=== PATIENT | female | born 1955 | race Caucasian/White ===

== ENCOUNTER 2019-11-19 23:19 | Inpatient (IN) | payer MEDICAID ==
[~2019-11-19] VITALS: Ht 152.4 cm; Wt 50.9 kg
[~2019-11-19 23:19] MED LIST: APIX2.5T PO; APIX5TAB3 PO; ARIP2TAB37 PO; BUTA-281 PO; GABA800T11 PO; HYDR-4353 PO; INSU100V9 SQ; LORA2TAB PO; NOVRI SQ; ONDA-103 PO; TEMA15CA PO
[2019-11-20] MEDS ORDERED: LORazepam 2 mg/ml vial ONE (00:07)
[2019-11-20] MEDS ORDERED: LORazepam 2 mg/ml vial IV ONE ×4 (00:10→01:25)
[2019-11-20] MEDS ORDERED: levetiracetam inj 500 MG in normal saline 100ml IV soln 95 ML IV STA (00:12)
[2019-11-20] MEDS ORDERED: Levetiracetam-NS 500mg/100ml 100 ML IV STA (00:18)
[2019-11-20 00:34] LABS: HEMOGLOBIN 11.1 g/dl (12.0-16.0)
[2019-11-20 00:35] LABS: BASOPHILS # (AUTO) 0.1 X10'3 (0-0.2); BASOPHILS % (AUTO) 1.2 % (0-1); EOSINOPHILS # (AUTO) 0.2 X10'3 (0-0.9); EOSINOPHILS % (AUTO) 2.5 % (0-6); HEMATOCRIT 33.4 % (35.0-45.0); LYMPHOCYTES # (AUTO) 2.8 X10'3 (1.1-4.8); LYMPHOCYTES % (AUTO) 35.6 % (21-51); MEAN CORPUSCULAR HEMOGLOBIN 30.1 PG (27.0-31.0); MEAN CORPUSCULAR HGB CONC 33.3 g/dL (33.0-36.5); MEAN CORPUSCULAR VOLUME 90.4 FL (78-98); MEAN PLATELET VOLUME 8.3 FL (7.4-10.4); MONOCYTES # (AUTO) 0.6 X10'3 (0-0.9); NEUTROPHILS # (AUTO) 4.2 X10'3 (1.8-7.7); NEUTROPHILS % (AUTO) 52.7 % (42-75); PLATELET COUNT 252 X10'3 (140-440); RED CELL DISTRIBUTION WIDTH 13.4 % (11.5-14.5)
[2019-11-20] MEDS ORDERED: ondansetron/PF 4mg/2ml inj IV STA (00:44)
[2019-11-20 00:45] LABS: ALANINE AMINOTRANSFERASE 18 U/L (12-78); ALBUMIN 3.3 G/DL (3.4-5.0); ALKALINE PHOSPHATASE 89 IU/L (46-116); ANION GAP 9 (8-16); ASPARTATE AMINO TRANSFERASE 16 U/L (10-37); BILIRUBIN,TOTAL 0.2 MG/DL (0.1-1.0); BLOOD UREA NITROGEN 30 MG/DL (7-18); BUN/CREATININE RATIO 25.6 (6.6-38.0); CALCIUM 8.8 MG/DL (8.5-10.1); CHLORIDE 105 MMOL/L (99-107); CREATININE 1.17 MG/DL (0.40-0.90); GLUCOSE 329 MG/DL (70-104); SODIUM 138 MMOL/L (135-145); TOTAL CARBON DIOXIDE 24.4 MMOL/L (24-32); TOTAL PROTEIN 6.7 G/DL (6.4-8.2); eGFR 47 ML/MIN
--- NOTE | 2019-11-20 00:45 | NUR ---
pt came back from CT at 0005. She appeared to be having a seizure and her body started to jerk. Dr. Geronimo came to the room. Pt placed on O2 2L NC> pt given IM ativan 1mg. d/t unable to start an IV. she then got an IV placed on her left FA. Dr Geronimo ordered her Keppra IV. She continues to have seizures and moments of quick jerking of her body. Pt jerks/shakes for approximately 1 minutes then she goes into a postictal mode. She has been imtermittenly having seizures for now 45 minutes. She has not been back to her base line. she is given another dose of ativan and zofran. pt vomiting and placed on her side. Suction at bedside used.
[2019-11-20] MEDS ORDERED: haloperidol lactate 5mg/ml inj IM ONE ×2 (01:45→05:00)
[2019-11-20] MEDS ORDERED: diphenhydrAMINE 50 mg/ml inj IM ONE (01:45)
[2019-11-20] MEDS ORDERED: Levetiracetam-NS 500mg/100ml 100 ML IV ONE (02:10)
--- NOTE | 2019-11-20 02:14 | NUR ---
pt continues to move in body with left and ride body movements. her eyes are close and she is sticking her tongue out at times. She does not answer questions appropriately. Urine collected via straight cath with assistance from kami genao and kami guardado.
[2019-11-20 02:18] LABS: CLARITY,URINE CLEAR (Clear); COLOR,URINE YELLOW (Yellow); GLUCOSE, URINE >=1000 mg/dl (Neg); KETONES,URINE NEGATIVE (Neg); LEUKOCYTE ESTERASE ,URINE NEGATIVE (Neg); NITRITES, URINE NEGATIVE (Neg); OCCULT BLOOD,URINE NEGATIVE (Neg); PH,URINE 5.5 (4.8-8.0); PROTEIN,URINE NEGATIVE (Neg); UROBILINOGEN,URINE 0.2 E.U/dL (0.2-1.0)
[2019-11-20 02:20] LABS: UA COLLECTION TYPE STRAIGHT CATH
[2019-11-20] MEDS ORDERED: BACL10TA2 PO (02:20)
[2019-11-20] MEDS ORDERED: GABA600T13 PO (02:20)
[2019-11-20] MEDS ORDERED: SUMA20SP (02:20)
[2019-11-20] MEDS ORDERED: INSU100I39 SUBCUT (02:20)
[2019-11-20 02:28] LABS: URINE AMPHETAMINE SCREEN NEGATIVE (Neg); URINE BARBITUATE SCREEN NEGATIVE (Neg); URINE BENZODIAZEPINES SCREEN NEGATIVE (Neg); URINE CANNABINOID SCREEN NEGATIVE (Neg); URINE COCAINE SCREEN NEGATIVE (Neg); URINE METHADONE SCREEN NEGATIVE (Neg); URINE OPIATE SCREEN NEGATIVE (Neg); URINE PHENCYCLIDINE SCREEN NEGATIVE (Neg)
--- NOTE | 2019-11-20 02:43 | NUR ---
pt able to answer the questions that she wants too when I ask her questions. She continues to thrive in the bed. Encouraged her to stop this behavior.
[2019-11-20 02:48] LABS: BACTERIA,URINE NONE SEEN /HPF (Neg); RBC,URINE NONE SEEN /HPF (0-2); SQUAMOUS EPITHELIAL CELL,UR FEW /LPF (FEW); WBC,URINE NONE SEEN /HPF (0-4)
--- NOTE | 2019-11-20 02:59 | NUR ---
Pt states she took too many gabepentin. she also was able to tell us that she needed to pee. She wasn't able to hold it though, full bed change. informed of gabepjayant.
[2019-11-20] MEDS ORDERED: MIDAZolam 5mg/ml 2ml vial IV ONE ×2 (03:15→03:45)
--- NOTE | 2019-11-20 03:30 | NUR ---
md requested restraints be removed, so done. at to evaluate pt. Pt moves side to side but appears more comfortable. Continue 1:1
--- NOTE | 2019-11-20 04:13 | NUR ---
pt still restless and confused. trying to get out of bed. non verbal. pt got 10mg of versed. hernandez cath placed per dr. syed orders.
[2019-11-20] MEDS ORDERED: magnesium hydroxide 30ml (MOM) UD suspension PO PRN (04:15)
[2019-11-20] MEDS ORDERED: mag hydrox/Alum hydrox/simeth 30ml oral suspension PO PRN (04:15)
[2019-11-20] MEDS ORDERED: LIDOcaine 2% 10ml TOPICAL JELLY (Urojet) TP ONE (04:15)
[2019-11-20] MEDS ORDERED: ondansetron/PF 4mg/2ml inj IV PRN (04:15)
[2019-11-20] MEDS ORDERED: acetaminophen 325mg tablet PO PRN (04:15)
[2019-11-20] MEDS ORDERED: dextrose ORAL solution 15 GM/59 ML bottle PO PRN ×2 (04:20)
[2019-11-20] MEDS ORDERED: dextrose 50%-water 50ml dispensing syringe IV PRN ×2 (04:20)
[2019-11-20] MEDS ORDERED: MESSAGE TO PHARMACY PO ONE (04:20)
[2019-11-20] MEDS ORDERED: glucagon, human recombinant 1mg kit SUBCUT PRN (04:20)
[2019-11-20] MEDS: normal saline 1000ml 1,000 ML IV SCH ×3 (04:32→17:40)
--- NOTE | 2019-11-20 04:34 | NUR ---
pt asleep laying on left side
--- NOTE | 2019-11-20 05:00 | NUR ---
pt awoke and moaning and thrashing around again, informed.
--- NOTE | 2019-11-20 05:00 | NUR ---
pt awake and throwing her legs around. she is grabbing at her leads and bp cuff. she is still disoriented. v/s stable. per dr rahman, give her im ativan
[2019-11-20 05:15] LABS: HEMOGLOBIN A1C 10.6 % (4.5-6.2)
--- NOTE | 2019-11-20 06:25 | NUR ---
Received report from ED RN
[2019-11-20 06:30] VITALS: BP 133/75
[2019-11-20] MEDS: Levetiracetam-NS 500mg/100ml 100 ML IV SCH ×2 (10:12→21:07)
[2019-11-20] MEDS: heparin, porcine 5000 units/ml vial SQ SCH ×2 (10:13→20:20)
[2019-11-20] MEDS: insulin Lispro (HumaLOG) vial - multi-dose SQ SCH ×2 (10:18→14:15)
[2019-11-20 11:00] VITALS: BP 138/77
--- NOTE | 2019-11-20 12:23 | NUR ---
Pt with T2DM, current A1c is 10.6%. Pt just admitted today with acute encephalopathy, seizures, and AMS. Pending physical assessment however pt confused and nonverbal this morning per RN notes, currently with a sitter at bedside. DM education deferred at this time. Will continue to follow and provide education once pt alert and oriented. Addendum: 11/20/19 at [address] Amended: Links added.
--- NOTE | 2019-11-20 15:25 | NUR ---
DM consult: Patient's A1c has already been addressed, DM education deferred at this time, see below. Physical assessment still pending. Pt with T2DM, current A1c is 10.6%. Pt just admitted today with acute encephalopathy, seizures, and AMS. Pending physical assessment however pt confused and nonverbal this morning per RN notes, currently with a sitter at bedside. DM education deferred at this time. Will continue to follow and provide education once pt alert and oriented. Addendum: 11/20/19 at [address] Amended: Links added.
--- NOTE | 2019-11-20 18:30 | NUR ---
Problems reprioritized. Patient report given, questions answered & plan of care reviewed with RUDOLPH Hoover.
[2019-11-20 20:00] VITALS: BP 119/61
[2019-11-20] MEDS ORDERED: levetiracetam inj 500 MG in normal saline 100ml IV soln 95 ML IV SCH (21:24)
[2019-11-20] MEDS: insulin glargine (Lantus) pen - multi-dose SQ SCH (22:15)
[2019-11-21] VITALS: BP 96/57
[2019-11-21 05:32] LABS: BASOPHILS # (AUTO) 0.1 X10'3 (0-0.2); BASOPHILS % (AUTO) 0.7 % (0-1); EOSINOPHILS # (AUTO) 0.1 X10'3 (0-0.9); EOSINOPHILS % (AUTO) 1.8 % (0-6); HEMATOCRIT 33.2 % (35.0-45.0); HEMOGLOBIN 11.1 g/dl (12.0-16.0); LYMPHOCYTES # (AUTO) 2.2 X10'3 (1.1-4.8); LYMPHOCYTES % (AUTO) 29.1 % (21-51); MEAN CORPUSCULAR HEMOGLOBIN 29.7 PG (27.0-31.0); MEAN CORPUSCULAR HGB CONC 33.5 g/dL (33.0-36.5); MEAN CORPUSCULAR VOLUME 88.6 FL (78-98); MEAN PLATELET VOLUME 8.4 FL (7.4-10.4); MONOCYTES # (AUTO) 0.5 X10'3 (0-0.9); MONOCYTES % (AUTO) 6.5 % (2-12); NEUTROPHILS # (AUTO) 4.6 X10'3 (1.8-7.7); NEUTROPHILS % (AUTO) 61.9 % (42-75); PLATELET COUNT 248 X10'3 (140-440); RED BLOOD COUNT 3.75 X10'6 (4.20-5.60); RED CELL DISTRIBUTION WIDTH 13.7 % (11.5-14.5); WHITE BLOOD COUNT 7.5 X10'3 (4.5-11.0)
[2019-11-21 06:08] LABS: ALANINE AMINOTRANSFERASE 21 U/L (12-78); ALBUMIN 2.6 G/DL (3.4-5.0); ALBUMIN/GLOBULIN RATIO 0.8 (1.1-1.5); ALKALINE PHOSPHATASE 82 IU/L (46-116); ANION GAP 10 (8-16); ASPARTATE AMINO TRANSFERASE 34 U/L (10-37); BILIRUBIN,TOTAL 0.2 MG/DL (0.1-1.0); BLOOD UREA NITROGEN 21 MG/DL (7-18); BUN/CREATININE RATIO 23.6 (6.6-38.0); CALCIUM 8.6 MG/DL (8.5-10.1); CHLORIDE 110 MMOL/L (99-107); CREATININE 0.89 MG/DL (0.40-0.90); GLUCOSE 133 MG/DL (70-104); POTASSIUM 3.9 MMOL/L (3.5-5.1); SODIUM 141 MMOL/L (135-145); TOTAL CARBON DIOXIDE 21.4 MMOL/L (24-32); TOTAL PROTEIN 5.8 G/DL (6.4-8.2); eGFR 64 ML/MIN
--- NOTE | 2019-11-21 06:21 | NUR ---
Problems reprioritized. Patient report given, questions answered & plan of care reviewed with Deann RN.
[2019-11-21 06:30] VITALS: BP 120/68
--- NOTE | 2019-11-21 06:35 | NUR ---
Patient in room [facility] 349. I have received report from RUDOLPH Hoover and had the opportunity to ask questions and assume patient care.
[2019-11-21] MEDS: heparin, porcine 5000 units/ml vial SQ SCH ×2 (09:38→21:14)
[2019-11-21] MEDS: insulin Lispro (HumaLOG) vial - multi-dose SQ SCH (09:43)
[2019-11-21] MEDS: normal saline 1000ml 1,000 ML IV SCH ×2 (10:13→17:10)
[2019-11-21 11:48] VITALS: BP 126/65
--- NOTE | 2019-11-21 18:45 | NUR ---
Problems reprioritized. Patient report given, questions answered & plan of care reviewed with RUDOLPH Gee.
--- NOTE | 2019-11-21 18:56 | NUR ---
Patient in room [facility] 349. I have received report from Deann Olivia and had the opportunity to ask questions and assume patient care. Addendum: 11/21/19 at 1856 by Marlen Jarvis RN Amended: Links added.
--- NOTE | 2019-11-21 19:08 | NUR ---
resting eyes closed without changes sitter at the bedside. no s&s of distress at this time.
[2019-11-21 19:15] VITALS: BP 164/76
[2019-11-21] MEDS: insulin glargine (Lantus) pen - multi-dose SQ SCH (21:00)
[2019-11-21] MEDS: LORazepam 2 mg/ml vial IV PRN (21:12)
[2019-11-21] MEDS: levetiracetam 250mg tablet PO SCH (21:13)
--- NOTE | 2019-11-21 21:15 | NUR ---
pt c/o right shoulder pain said felt like she was punched no bruise noted and medicated with Tylenol for this. pt had yelled at therapy teacher and was agitated so medicated with 1mg Ativan for this and explained what happened to bring her in. pt stated she used CBD cream day she came in and 2 Neurontin and no baclofen that day.
--- NOTE | 2019-11-22 00:18 | NUR ---
sitter at bedside and pt resting without changes at this time.
--- NOTE | 2019-11-22 02:20 | NUR ---
resting eyes closed without changes
--- NOTE | 2019-11-22 05:26 | NUR ---
resting eyes closed without changes.
[2019-11-22 05:37] LABS: BASOPHILS % (AUTO) 0.5 % (0-1); EOSINOPHILS # (AUTO) 0.2 X10'3 (0-0.9); EOSINOPHILS % (AUTO) 2.8 % (0-6); HEMATOCRIT 33.3 % (35.0-45.0); HEMOGLOBIN 11.1 g/dl (12.0-16.0); LYMPHOCYTES # (AUTO) 2.6 X10'3 (1.1-4.8); LYMPHOCYTES % (AUTO) 46.3 % (21-51); MEAN CORPUSCULAR HEMOGLOBIN 29.7 PG (27.0-31.0); MEAN CORPUSCULAR HGB CONC 33.3 g/dL (33.0-36.5); MEAN CORPUSCULAR VOLUME 89.1 FL (78-98); MEAN PLATELET VOLUME 8.3 FL (7.4-10.4); MONOCYTES # (AUTO) 0.4 X10'3 (0-0.9); MONOCYTES % (AUTO) 6.9 % (2-12); NEUTROPHILS # (AUTO) 2.4 X10'3 (1.8-7.7); NEUTROPHILS % (AUTO) 43.5 % (42-75); PLATELET COUNT 231 X10'3 (140-440); RED BLOOD COUNT 3.74 X10'6 (4.20-5.60); RED CELL DISTRIBUTION WIDTH 13.3 % (11.5-14.5); WHITE BLOOD COUNT 5.6 X10'3 (4.5-11.0)
[2019-11-22 05:47] LABS: ALANINE AMINOTRANSFERASE 18 U/L (12-78); ALBUMIN 2.5 G/DL (3.4-5.0); ALBUMIN/GLOBULIN RATIO 0.8 (1.1-1.5); ALKALINE PHOSPHATASE 81 IU/L (46-116); ANION GAP 6 (8-16); ASPARTATE AMINO TRANSFERASE 29 U/L (10-37); BILIRUBIN,TOTAL 0.3 MG/DL (0.1-1.0); BLOOD UREA NITROGEN 12 MG/DL (7-18); BUN/CREATININE RATIO 16.9 (6.6-38.0); CALCIUM 8.5 MG/DL (8.5-10.1); CHLORIDE 109 MMOL/L (99-107); CREATININE 0.71 MG/DL (0.40-0.90); GLUCOSE 115 MG/DL (70-104); POTASSIUM 3.5 MMOL/L (3.5-5.1); SODIUM 140 MMOL/L (135-145); TOTAL CARBON DIOXIDE 25.1 MMOL/L (24-32); TOTAL PROTEIN 5.8 G/DL (6.4-8.2); eGFR 83 ML/MIN
--- NOTE | 2019-11-22 06:20 | NUR ---
Patient in room [facility] 349. I have received report from RUDOLPH Gee and had the opportunity to ask questions and assume patient care.
--- NOTE | 2019-11-22 06:28 | NUR ---
Problems reprioritized. Patient report given, questions answered & plan of care reviewed with Deann Olivia. Addendum: 11/22/19 at 0629 by Marlen Jarvis RN Amended: Links added.
[2019-11-22 06:30] VITALS: BP 129/74
[2019-11-22] MEDS: normal saline 1000ml 1,000 ML IV SCH ×3 (06:32→20:09)
[2019-11-22] MEDS: heparin, porcine 5000 units/ml vial SQ SCH ×2 (07:37→20:31)
[2019-11-22] MEDS: levetiracetam 250mg tablet PO SCH ×2 (07:37→20:28)
[2019-11-22] MEDS: acetaminophen 325mg tablet PO PRN (10:10)
[2019-11-22 11:00] VITALS: BP_SYST 130; BP_SYST 133; BP_SYST 137; BP_DIAS 67; BP_DIAS 70; BP_DIAS 72
--- NOTE | 2019-11-22 11:25 | NUR ---
Pt had syncopal episode x1 when ambulating w/PT. Dr Ramos notified. Orders received.
[2019-11-22] MEDS: HYDROcodone/acetaminophen 10/325mg tab PO PRN ×3 (12:13→20:30)
[2019-11-22] MEDS: insulin Lispro (HumaLOG) vial - multi-dose SQ SCH ×2 (14:05→18:56)
--- NOTE | 2019-11-22 18:30 | NUR ---
Problems reprioritized. Patient report given, questions answered & plan of care reviewed with RUDOLPH Dunn.
--- NOTE | 2019-11-22 18:30 | NUR ---
Patient in room [facility] 349. I have received report from DOYLE and had the opportunity to ask questions and assume patient care.
[2019-11-22 20:00] VITALS: BP_SYST 143; BP_SYST 145; BP_DIAS 73; BP_DIAS 75; BP_DIAS 76
[2019-11-22] MEDS: insulin glargine (Lantus) pen - multi-dose SQ SCH (21:00)
[2019-11-22] MEDS ORDERED: Melatonin 3mg tablet PO PRN (22:30)
[2019-11-23] VITALS: BP 124/65
[2019-11-23] MEDS: HYDROcodone/acetaminophen 10/325mg tab PO PRN ×2 (00:04→09:07)
--- NOTE | 2019-11-23 05:15 | NUR ---
PT C/O NAUSEA AND HEADACHE. BLOOD GLUCOSE 115. PT BEGAN TO HAVE A SEIZURE: NON RESPONSIVE WITH RIGHT ARM TWITCHING. ATIVAN IV GIVEN PER MD ORDER. BP 137/69, HR 86, OXYGEN SATURATIONS 95% RA, TEMP 97.6. AFTER ATIVAN, PT OPENED EYES AND BECAME TEARFUL. PT ABLE TO VERBALIZE NAME AND THAT SHE IS "IN BED" 0532: PT BECAME NON RESPONSIVE AGAIN, WITH BOTH ARMS TWITCHING AND TONGUE STICKING OUT OF MOUTH. PT DOES NOT APPEAR TO BE BITING TONGUE. BP 151/82 HR 84, 91% RA, PT PLACED ON 2L NC, O2 97% 2L. ATIVAN IV GIVEN ONCE AGAIN. DR CHAVIRA NOTIFIED OF ABOVE INFORMATION. DR JOHNSON HERE TO SEE PT AT THIS TIME. PT ABLE TO OPEN HER EYES AND C/O ALEXANDER. UNABLE TO ANSWER QUESTIONS APPROPRIATELY AT THIS TIME. KEPPRA IV NOW ORDERED BY DR CHAVIRA.
[2019-11-23 05:17] VITALS: BP 137/69
[2019-11-23] MEDS: LORazepam 2 mg/ml vial IV PRN ×3 (05:20→05:32)
[2019-11-23] MEDS: normal saline 1000ml 1,000 ML IV SCH (05:27)
[2019-11-23 05:32] VITALS: BP 151/82
[2019-11-23] MEDS ORDERED: Levetiracetam-NS 500mg/100ml 100 ML IV SCH ×2 (05:40→05:42)
[2019-11-23] MEDS ORDERED: Levetiracetam-NS 500mg/100ml 100 ML IV ONE (05:42)
--- NOTE | 2019-11-23 06:02 | NUR ---
PT REMAINS ALERT. ABLE TO STATE NAME AND ASSIST WITH USING THE BEDPAN. WILL CONTINUE TO MONITOR.
--- NOTE | 2019-11-23 06:44 | NUR ---
I have received report from Mona GALDAMEZ and had the opportunity to ask questions and assume patient care.
[2019-11-23] MEDS: levetiracetam 250mg tablet PO SCH (07:54)
[2019-11-23] MEDS: heparin, porcine 5000 units/ml vial SQ SCH (07:59)
[2019-11-23 08:53] LABS: BASOPHILS % (AUTO) 0.5 % (0-1); EOSINOPHILS # (AUTO) 0.2 X10'3 (0-0.9); HEMATOCRIT 30.3 % (35.0-45.0); HEMOGLOBIN 10.3 g/dl (12.0-16.0); LYMPHOCYTES # (AUTO) 2.3 X10'3 (1.1-4.8); MEAN CORPUSCULAR HEMOGLOBIN 30.1 PG (27.0-31.0); MEAN CORPUSCULAR VOLUME 88.5 FL (78-98); MEAN PLATELET VOLUME 7.9 FL (7.4-10.4); MONOCYTES # (AUTO) 0.3 X10'3 (0-0.9); MONOCYTES % (AUTO) 7.6 % (2-12); NEUTROPHILS # (AUTO) 1.7 X10'3 (1.8-7.7); NEUTROPHILS % (AUTO) 37.9 % (42-75); PLATELET COUNT 214 X10'3 (140-440); RED BLOOD COUNT 3.43 X10'6 (4.20-5.60); RED CELL DISTRIBUTION WIDTH 13.2 % (11.5-14.5); WHITE BLOOD COUNT 4.5 X10'3 (4.5-11.0)
[2019-11-23] MEDS: insulin Lispro (HumaLOG) vial - multi-dose SQ SCH ×2 (09:00→13:45)
[2019-11-23 09:05] LABS: ALANINE AMINOTRANSFERASE 19 U/L (12-78); ALBUMIN 2.7 G/DL (3.4-5.0); ALBUMIN/GLOBULIN RATIO 0.8 (1.1-1.5); ALKALINE PHOSPHATASE 73 IU/L (46-116); ANION GAP 7 (8-16); ASPARTATE AMINO TRANSFERASE 33 U/L (10-37); BILIRUBIN,TOTAL 0.2 MG/DL (0.1-1.0); BLOOD UREA NITROGEN 9 MG/DL (7-18); BUN/CREATININE RATIO 11.8 (6.6-38.0); CHLORIDE 111 MMOL/L (99-107); CREATININE 0.76 MG/DL (0.40-0.90); GLUCOSE 138 MG/DL (70-104); POTASSIUM 3.5 MMOL/L (3.5-5.1); SODIUM 144 MMOL/L (135-145); TOTAL CARBON DIOXIDE 25.9 MMOL/L (24-32); TOTAL PROTEIN 5.9 G/DL (6.4-8.2); eGFR 77 ML/MIN
[2019-11-23 10:41] VITALS: BP_SYST 131; BP_SYST 138; BP_SYST 139; BP_DIAS 68; BP_DIAS 74; BP_DIAS 76
[2019-11-23] MEDS: acetaminophen 325mg tablet PO PRN (11:16)
--- NOTE | 2019-11-23 15:00 | NUR ---
Patient wanting to leave AMA. Patient pulled own IV out in the restroom while on the toilet. Patient educated that she is on a hold, which was a surprise to the patient. Patient complains that she had not been told about the hold. Paged SS to talk to patient again. Patient is tearful and states she isn't wanting to hurt herself.
--- NOTE | 2019-11-23 16:45 | NUR ---
PAGER ID: [phone] MESSAGE: [id number] Lo Zuñiga has been evaluated by Mental Health and cleared. Daylin [id number]
--- NOTE | 2019-11-23 17:25 | NUR ---
PAGER ID: [phone] MESSAGE: [id number] Lo Zuñiga do you want to discharge her? Daylin [id number]
[2019-11-23] MEDS ORDERED: LEVE250T PO (18:05)
--- NOTE | 2019-11-23 18:30 | NUR ---
Patient in room [facility] 349. I have received report from MARA and had the opportunity to ask questions and assume patient care. PIV X 2 DC'D BY AM RN, DISCHARGE PAPERWORK COMPLETE. AWAITING TRANSPORT HOME.
--- NOTE | 2019-11-23 20:10 | NUR ---
DC HOME VIA PRIVATE VEHICLE.
== END 2019-11-23 20:00 | disposition home or self-care (01) | DRG 52 ==
LOC: ER 23:20 → UNDOADMIN 11-20 04:13 → ED HOLD 11-20 04:13 → UNDOADMIN 11-20 04:18 → ED HOLD 11-20 04:18 → SUR 3N 11-20 07:35 → ED HOLD 11-20 07:35 → UNDODISIN 11-23 20:00
PROVIDERS: ADMIT Internal Medicine; ATTEND Family Medicine
DX: G92 Toxic encephalopathy (principal); E11.9 Type 2 diabetes mellitus without complications; G40.909 Epilepsy, unspecified, not intractable, without status epilepticus; G43.909 Migraine, unspecified, not intractable, without status migrainosus; W18.39XA Other fall on same level, initial encounter; F32.9 Major depressive disorder, single episode, unspecified; T42.6X5A Adverse effect of other antiepileptic and sedative-hypnotic drugs, initial encounter; T42.8X5A Adverse effect of antiparkinsonism drugs and other central muscle-tone depressants, initial encounter; R55 Syncope and collapse; I25.2 Old myocardial infarction; Z82.3 Family history of stroke; Z82.5 Family history of asthma and other chronic lower respiratory diseases; Z83.3 Family history of diabetes mellitus; Y93.89 Activity, other specified; Y92.89 Other specified places as the place of occurrence of the external cause; Y99.8 Other external cause status; Z88.0 Allergy status to penicillin; Z88.8 Allergy status to other drugs, medicaments and biological substances; Z79.899 Other long term (current) drug therapy
CPT/HCPCS: 36415; 70450; 71250; 73030; 80053; 80305; 81001; 82948; 83036; 85025; 87081; 92508; 92616; 93005; 93306; 96372; 96374; 96375; 97112; 97116; 97162; 97530; 99285; G0378; J1200; J1630; J1644; J1815; J1953; J2060; J2250; J2405; J7030

== ENCOUNTER 2019-12-09 14:32 | Emergency (ER) | payer MEDICAID ==
[~2019-12-09] VITALS: Ht 152.4 cm; Wt 47.7 kg
[~2019-12-09 14:32] MED LIST changes: -APIX2.5T PO; -APIX5TAB3 PO; -ARIP2TAB37 PO; -BUTA-281 PO; +GABA600T13 PO; -GABA800T11 PO; -HYDR-4353 PO; +INSU100I39 SUBCUT; -INSU100V9 SQ; +LEVE250T PO; -LORA2TAB PO; -NOVRI SQ; -ONDA-103 PO; +SUMA20SP; -TEMA15CA PO
[2019-12-09] MEDS ORDERED: normal saline 1000ML IV soln IV ONE (15:15)
[2019-12-09] MEDS ORDERED: ondansetron/PF 4mg/2ml inj IV ONE (15:20)
[2019-12-09] MEDS ORDERED: pantoprazole 40 MG vial IV ONE (15:35)
--- NOTE | 2019-12-09 15:36 | NUR ---
Pt is aware that we need a urine sample. She is not able to get one at this time, will let us know once some of the fluids are in.
[2019-12-09 15:45] LABS: BASOPHILS % (AUTO) 0.6 % (0-1); EOSINOPHILS % (AUTO) 0.6 % (0-6); HEMATOCRIT 39.8 % (35.0-45.0); HEMOGLOBIN 13.2 g/dl (12.0-16.0); LYMPHOCYTES # (AUTO) 1.6 X10'3 (1.1-4.8); LYMPHOCYTES % (AUTO) 22.1 % (21-51); MEAN CORPUSCULAR HEMOGLOBIN 29.4 PG (27.0-31.0); MEAN CORPUSCULAR HGB CONC 33.3 g/dL (33.0-36.5); MEAN CORPUSCULAR VOLUME 88.4 FL (78-98); MEAN PLATELET VOLUME 7.8 FL (7.4-10.4); MONOCYTES # (AUTO) 0.3 X10'3 (0-0.9); MONOCYTES % (AUTO) 4.7 % (2-12); NEUTROPHILS # (AUTO) 5.1 X10'3 (1.8-7.7); PLATELET COUNT 335 X10'3 (140-440); RED CELL DISTRIBUTION WIDTH 13.4 % (11.5-14.5); WHITE BLOOD COUNT 7.1 X10'3 (4.5-11.0)
[2019-12-09 15:56] LABS: PARTIAL THROMBOPLASTIN TIME 25 SECONDS (22-32)
[2019-12-09 15:58] LABS: ALANINE AMINOTRANSFERASE 26 U/L (12-78); ALBUMIN 4.3 G/DL (3.4-5.0); ALKALINE PHOSPHATASE 100 IU/L (46-116); ANION GAP 10 (8-16); ASPARTATE AMINO TRANSFERASE 17 U/L (10-37); BILIRUBIN,TOTAL 0.3 MG/DL (0.1-1.0); BLOOD UREA NITROGEN 15 MG/DL (7-18); BUN/CREATININE RATIO 12.8 (6.6-38.0); CALCIUM 9.6 MG/DL (8.5-10.1); CHLORIDE 100 MMOL/L (99-107); CREATININE 1.17 MG/DL (0.40-0.90); GLUCOSE 187 MG/DL (70-104); POTASSIUM 3.8 MMOL/L (3.5-5.1); SODIUM 141 MMOL/L (135-145); TOTAL CARBON DIOXIDE 31.2 MMOL/L (24-32); TOTAL PROTEIN 8.4 G/DL (6.4-8.2); eGFR 47 ML/MIN
[2019-12-09] MEDS ORDERED: morphine 4 MG/ML inj SYRINge IV ONE (16:10)
[2019-12-09] MEDS ORDERED: morphine 10mg/ml inj. IV ONE (16:20)
[2019-12-09 16:42] LABS: ETHANOL < 0.010 GM/DL (0.0-0.010)
[2019-12-09] MEDS ORDERED: PANT-47 PO (17:13)
[2019-12-09] MEDS ORDERED: SUCR1TAB PO (17:15)
[2019-12-09] MEDS ORDERED: FAMO40TA73 PO (17:15)
[2019-12-09 17:43] VITALS: BP 143/78
[2019-12-09 17:58] LABS: CLARITY,URINE CLEAR (Clear); COLOR,URINE YELLOW (Yellow); GLUCOSE, URINE 100 mg/dl (Neg); KETONES,URINE 15 mg/dl (Neg); LEUKOCYTE ESTERASE ,URINE NEGATIVE (Neg); NITRITES, URINE NEGATIVE (Neg); OCCULT BLOOD,URINE NEGATIVE (Neg); PH,URINE 6.5 (4.8-8.0); PROTEIN,URINE TRACE mg/dl (Neg); UROBILINOGEN,URINE 0.2 E.U/dL (0.2-1.0)
[2019-12-09 18:00] LABS: UA COLLECTION TYPE VOIDED
[2019-12-09 18:07] LABS: WBC,URINE 0-4 /HPF (0-4)
[2019-12-09 18:08] LABS: BACTERIA,URINE FEW /HPF (Neg); CAL OXALATE CRYSTALS FEW /HPF (NEGATIVE); MUCUS STRANDS FEW /LPF (Neg); RBC,URINE 0-2 /HPF (0-2); SQUAMOUS EPITHELIAL CELL,UR FEW /LPF (FEW)
[2019-12-09 18:09] LABS: HYALINE CASTS 0-3 /LPF (NEGATIVE)
[2019-12-09 18:11] LABS: URINE AMPHETAMINE SCREEN NEGATIVE (Neg); URINE BARBITUATE SCREEN NEGATIVE (Neg); URINE BENZODIAZEPINES SCREEN NEGATIVE (Neg); URINE CANNABINOID SCREEN POSITIVE (Neg); URINE COCAINE SCREEN NEGATIVE (Neg); URINE METHADONE SCREEN NEGATIVE (Neg); URINE OPIATE SCREEN POSITIVE (Neg); URINE PHENCYCLIDINE SCREEN NEGATIVE (Neg)
== END 2019-12-09 17:49 | disposition home or self-care (01) ==
LOC: ER 14:33
DX: K92.2 Gastrointestinal hemorrhage, unspecified (principal); R11.2 Nausea with vomiting, unspecified; R10.32 Left lower quadrant pain; R19.7 Diarrhea, unspecified; G43.909 Migraine, unspecified, not intractable, without status migrainosus; I25.2 Old myocardial infarction; E11.9 Type 2 diabetes mellitus without complications; Z86.69 Personal history of other diseases of the nervous system and sense organs; Z56.0 Unemployment, unspecified; Z88.0 Allergy status to penicillin; Z88.8 Allergy status to other drugs, medicaments and biological substances; Z88.1 Allergy status to other antibiotic agents; Z91.040 Latex allergy status; Z79.4 Long term (current) use of insulin; Z79.899 Other long term (current) drug therapy
CPT/HCPCS: 36415; 80053; 80305; 80320; 81001; 83605; 84145; 85025; 85610; 85730; 86885; 86900; 86901; 87040; 96361; 96374; 96375; 99284; C9113; J2270; J2405; J7030

== ENCOUNTER → 2019-12-25 | Emergency (ER) | payer MEDICAID ==
[~2019-12-25] VITALS: Ht 152.4 cm; Wt 46.8 kg
[~2019-12-25] MED LIST changes: +FAMO40TA73 PO; +KEP500T PO; +LORazepam 2 mg/ml vial IV ONE; +LORazepam 2 mg/ml vial ONE; +PANT-47 PO; +PANT20TA3 PO; +SUCR1TAB PO; +dicyclomine 10 MG capsule PO ONE; +insulin regular, human 10 units/0.1 ml syringe SQ ONE; +insulin regular, human U-100 3ml vial - multi-dose SQ ONE; +normal saline 1000ML IV soln IVB ONE; +ondansetron/PF 4mg/2ml inj IV ONE
[2019-12-25 21:50] LABS: CLARITY,URINE CLEAR (Clear); COLOR,URINE YELLOW (Yellow); GLUCOSE, URINE >=1000 mg/dl (Neg); KETONES,URINE TRACE mg/dl (Neg); LEUKOCYTE ESTERASE ,URINE NEGATIVE (Neg); NITRITES, URINE NEGATIVE (Neg); OCCULT BLOOD,URINE TRACE-INTACT (Neg); PH,URINE 5.5 (4.8-8.0); PROTEIN,URINE 100 mg/dl (Neg); UA COLLECTION TYPE CLN CATCH MIDSTREAM; UROBILINOGEN,URINE 0.2 E.U/dL (0.2-1.0)
--- NOTE | 2019-12-25 21:51 | NUR ---
Pt requested nausea medication and specifically asked for dilaudid. Notified MD Dozier who gave verbal order for zofran 4mg ivp. Then notified ROSAMARIA Hickman who had signed up for the patient.
[2019-12-25 21:56] LABS: BASOPHILS % (AUTO) 0.3 % (0-1); EOSINOPHILS % (AUTO) 0.1 % (0-6); HEMATOCRIT 36.1 % (35.0-45.0); LYMPHOCYTES # (AUTO) 1.4 X10'3 (1.1-4.8); LYMPHOCYTES % (AUTO) 12.5 % (21-51); MEAN CORPUSCULAR HEMOGLOBIN 29.3 PG (27.0-31.0); MEAN CORPUSCULAR HGB CONC 33.4 g/dL (33.0-36.5); MEAN CORPUSCULAR VOLUME 87.8 FL (78-98); MONOCYTES # (AUTO) 0.5 X10'3 (0-0.9); MONOCYTES % (AUTO) 4.7 % (2-12); NEUTROPHILS # (AUTO) 9.1 X10'3 (1.8-7.7); NEUTROPHILS % (AUTO) 82.4 % (42-75); PLATELET COUNT 360 X10'3 (140-440); RED BLOOD COUNT 4.11 X10'6 (4.20-5.60); RED CELL DISTRIBUTION WIDTH 13.7 % (11.5-14.5); WHITE BLOOD COUNT 11.1 X10'3 (4.5-11.0)
[2019-12-25 22:05] LABS: ALANINE AMINOTRANSFERASE 15 U/L (12-78); ALBUMIN 3.7 G/DL (3.4-5.0); ALBUMIN/GLOBULIN RATIO 0.9 (1.1-1.5); ALKALINE PHOSPHATASE 89 IU/L (46-116); ANION GAP 9 (8-16); ASPARTATE AMINO TRANSFERASE 11 U/L (10-37); BILIRUBIN,TOTAL 0.4 MG/DL (0.1-1.0); BLOOD UREA NITROGEN 26 MG/DL (7-18); BUN/CREATININE RATIO 18.1 (6.6-38.0); CHLORIDE 101 MMOL/L (99-107); CREATININE 1.44 MG/DL (0.40-0.90); GLUCOSE 355 MG/DL (70-104); LIPASE 1003 U/L (73-393); POTASSIUM 3.7 MMOL/L (3.5-5.1); SODIUM 139 MMOL/L (135-145); TOTAL CARBON DIOXIDE 28.9 MMOL/L (24-32); eGFR 37 ML/MIN
--- NOTE | 2019-12-25 22:35 | NUR ---
PER ROSAMARIA STRICKLAND, SOCORRO TO GIVE 2MG ATIVAN IV PUSH FOR SEIZURE ACTIVITY. MEDICATION OVERRIDE USED. ROSAMARIA ENTERED 1MG ORDER AND I ADDED A SECOND ORDER FOR THE TOTAL OF 2MG - MEDICATION PASSED OFF AND ADMINISTERED BY PRIMARY RN
[2019-12-25 22:50] LABS: BACTERIA,URINE FEW /HPF (Neg); RBC,URINE 0-2 /HPF (0-2); SQUAMOUS EPITHELIAL CELL,UR FEW /LPF (FEW)
--- NOTE | 2019-12-25 23:32 | NUR ---
Pt. stating that she needs more medication for her pain. She says "If I don't get anything for this pain, it's going to keep escalating to other thing." Pt. adds, "the last time I was here, it escalated to me having suicidal ideation."
[2019-12-25 23:39] VITALS: BP 133/70
== END | disposition home or self-care (01) ==
LOC: ER 21:15
DX: R10.31 Right lower quadrant pain (principal); R10.32 Left lower quadrant pain; R10.13 Epigastric pain; R11.2 Nausea with vomiting, unspecified; K92.1 Melena; R56.9 Unspecified convulsions; G43.909 Migraine, unspecified, not intractable, without status migrainosus; I25.2 Old myocardial infarction; E11.9 Type 2 diabetes mellitus without complications; Z88.0 Allergy status to penicillin; Z88.5 Allergy status to narcotic agent; Z88.8 Allergy status to other drugs, medicaments and biological substances; Z91.040 Latex allergy status; Z79.4 Long term (current) use of insulin; Z79.899 Other long term (current) drug therapy
CPT/HCPCS: 36415; 74176; 80053; 81001; 82948; 83690; 85025; 87088; 96372; 96374; 96375; 99285; J2060; J2405; J7030; J1815

== ENCOUNTER 2020-02-11 02:43 | Inpatient (IN) | payer MEDICAID ==
[~2020-02-11] VITALS: Ht 165.1 cm; Wt 55.0 kg
[~2020-02-11 02:43] MED LIST changes: -LORazepam 2 mg/ml vial IV ONE; -LORazepam 2 mg/ml vial ONE; -dicyclomine 10 MG capsule PO ONE; -insulin regular, human 10 units/0.1 ml syringe SQ ONE; -insulin regular, human U-100 3ml vial - multi-dose SQ ONE; -normal saline 1000ML IV soln IVB ONE; -ondansetron/PF 4mg/2ml inj IV ONE
[2020-02-11] MEDS ORDERED: metoclopramide 5 mg/ml inj IV ONE (02:55)
[2020-02-11] MEDS ORDERED: LORazepam 2 mg/ml vial IV ONE ×2 (03:00)
[2020-02-11] MEDS ORDERED: normal saline 1000ML IV soln IV ONE (03:00)
[2020-02-11 03:06] LABS: BASOPHILS % (AUTO) 0.2 % (0-1); EOSINOPHILS % (AUTO) 0 % (0-6); HEMATOCRIT 35.6 % (35.0-45.0); HEMOGLOBIN 11.6 g/dl (12.0-16.0); LYMPHOCYTES # (AUTO) 0.7 X10'3 (1.1-4.8); MEAN CORPUSCULAR HGB CONC 32.7 g/dL (33.0-36.5); MEAN CORPUSCULAR VOLUME 88.6 FL (78-98); MEAN PLATELET VOLUME 8.4 FL (7.4-10.4); MONOCYTES # (AUTO) 0.3 X10'3 (0-0.9); MONOCYTES % (AUTO) 2.9 % (2-12); NEUTROPHILS # (AUTO) 11.1 X10'3 (1.8-7.7); NEUTROPHILS % (AUTO) 90.9 % (42-75); PLATELET COUNT 286 X10'3 (140-440); RED BLOOD COUNT 4.01 X10'6 (4.20-5.60); RED CELL DISTRIBUTION WIDTH 13.8 % (11.5-14.5); WHITE BLOOD COUNT 12.2 X10'3 (4.5-11.0)
[2020-02-11 03:22] LABS: CLARITY,URINE CLEAR (Clear); COLOR,URINE YELLOW (Yellow); GLUCOSE, URINE >=1000 mg/dl (Neg); KETONES,URINE 15 mg/dl (Neg); LEUKOCYTE ESTERASE ,URINE NEGATIVE (Neg); NITRITES, URINE NEGATIVE (Neg); OCCULT BLOOD,URINE TRACE-INTACT (Neg); PH,URINE 5.5 (4.8-8.0); PROTEIN,URINE TRACE mg/dl (Neg); UROBILINOGEN,URINE 0.2 E.U/dL (0.2-1.0)
[2020-02-11 03:24] LABS: UA COLLECTION TYPE STRAIGHT CATH
[2020-02-11 03:25] LABS: ABG BASE EXCESS -4.8 mmol/L (-2.0-2.0); ABG HCO3 20.4 mmol/L (22.0-26.0); ABG OXYGEN SATURATION 95.4 % (94-97); ABG PCO2 (T) 38.2 mmHg (32.0-45.0); ABG PO2 (T) 85.5 mmHg (75.0-100.0); ALLEN'S TEST POSITIVE; FCOHb 0.3 % (0.0-3.9); FMetHb 0.1 % (0.0-1.5); PATIENT TEMPERATURE 37.1; TOTAL HEMOGLOBIN 11.4 G/dl (12.0-16.0)
[2020-02-11 03:28] LABS: BACTERIA,URINE NONE SEEN /HPF (Neg); SQUAMOUS EPITHELIAL CELL,UR NONE SEEN /LPF (FEW); WBC,URINE NONE SEEN /HPF (0-4)
[2020-02-11 03:29] LABS: RBC,URINE 0-2 /HPF (0-2); URINE AMPHETAMINE SCREEN NEGATIVE (Neg); URINE BARBITUATE SCREEN NEGATIVE (Neg); URINE BENZODIAZEPINES SCREEN NEGATIVE (Neg); URINE CANNABINOID SCREEN POSITIVE (Neg); URINE COCAINE SCREEN NEGATIVE (Neg); URINE METHADONE SCREEN NEGATIVE (Neg); URINE OPIATE SCREEN NEGATIVE (Neg); URINE PHENCYCLIDINE SCREEN NEGATIVE (Neg)
[2020-02-11 03:31] LABS: ALANINE AMINOTRANSFERASE 23 U/L (12-78); ALBUMIN 3.6 G/DL (3.4-5.0); ALBUMIN/GLOBULIN RATIO 0.9 (1.1-1.5); ALKALINE PHOSPHATASE 92 IU/L (46-116); ANION GAP 16 (8-16); ASPARTATE AMINO TRANSFERASE 11 U/L (10-37); BILIRUBIN,TOTAL 0.3 MG/DL (0.1-1.0); BLOOD UREA NITROGEN 38 MG/DL (7-18); BUN/CREATININE RATIO 22.5 (6.6-38.0); CHLORIDE 101 MMOL/L (99-107); CREATININE 1.69 MG/DL (0.40-0.90); LIPASE 165 U/L (73-393); MAGNESIUM 1.9 MG/DL (1.5-2.4); POTASSIUM 3.5 MMOL/L (3.5-5.1); SODIUM 140 MMOL/L (135-145); TOTAL CARBON DIOXIDE 23.1 MMOL/L (24-32); TOTAL PROTEIN 7.8 G/DL (6.4-8.2); eGFR 31 ML/MIN
[2020-02-11 03:40] LABS: GLUCOSE 610 MG/DL (70-104)
[2020-02-11] MEDS ORDERED: insulin regular, human U-100 3ml vial - multi-dose IV ONE (03:45)
[2020-02-11] MEDS ORDERED: insulin regular, human 10 units/0.1 ml syringe IV ONE (03:45)
[2020-02-11] MEDS ORDERED: bisacodyl 10mg suppository rectal RC PRN (04:05)
[2020-02-11] MEDS ORDERED: potassium Cl 20 mEq SR tablet PO PRN (04:05)
[2020-02-11] MEDS ORDERED: HYDROcodone/acetaminophen 5mg/325mg tablet PO PRN (04:05)
[2020-02-11] MEDS ORDERED: magnesium Cl slow-release 64mg tablet PO PRN (04:05)
[2020-02-11] MEDS ORDERED: acetaminophen 325mg tablet PO PRN ×2 (04:05)
[2020-02-11] MEDS ORDERED: potassium CL 10mEq/100ml bag 100 ML IV PRN ×2 (04:05)
[2020-02-11] MEDS ORDERED: MESSAGE TO PHARMACY PO ONE (04:05)
[2020-02-11] MEDS ORDERED: magnesium 4gm in 100ml NS 100 ML IV PRN (04:05)
[2020-02-11] MEDS ORDERED: dextrose ORAL solution 15 GM/59 ML bottle PO PRN ×2 (04:05)
[2020-02-11] MEDS ORDERED: magnesium 2GM in 50ml NS 50 ML IV PRN (04:05)
[2020-02-11] MEDS ORDERED: magnesium hydroxide 30ml (MOM) UD suspension PO PRN (04:05)
[2020-02-11] MEDS ORDERED: acetaminophen 650mg rectal suppository RC PRN (04:05)
[2020-02-11] MEDS ORDERED: mag hydrox/Alum hydrox/simeth 30ml oral suspension PO PRN (04:05)
[2020-02-11] MEDS ORDERED: glucagon, human recombinant 1mg kit SUBCUT PRN (04:05)
[2020-02-11] MEDS ORDERED: dextrose 50%-water 50ml dispensing syringe IV PRN ×2 (04:05)
[2020-02-11] MEDS: normal saline 1000ml 1,000 ML IV SCH ×3 (04:31→22:09)
[2020-02-11 04:38] LABS: HEMOGLOBIN A1C 9.9 % (4.5-6.2)
[2020-02-11] MEDS ORDERED: diatr meglu/diatrizoate 30ml oral sol.-(3 dose) bottle PO ONE (06:00)
[2020-02-11] MEDS: diatr meglu/diatrizoate 30ml oral sol.-(3 dose) bottle PO SCH ×3 (06:03→07:36)
--- NOTE | 2020-02-11 07:00 | NUR ---
Pt arrive to unit stable. Oriented pt to call light and room. VS assessed. 2RN skin check and physical assessment will be completed. tele monitor placed.
[2020-02-11 07:14] VITALS: BP 134/72
--- NOTE | 2020-02-11 07:15 | NUR ---
Patient in room PCU 3027. I have received report from kami Joyner and had the opportunity to ask questions and assume patient care.
[2020-02-11] MEDS: K and/or MAG REPLACEMENT MC SCH ×2 (07:18→19:12)
[2020-02-11] MEDS: ondansetron/PF 4mg/2ml inj IV PRN ×2 (07:34→20:23)
[2020-02-11] MEDS: heparin, porcine 5000 units/ml vial SQ SCH ×2 (07:34→19:26)
[2020-02-11] MEDS: insulin Lispro (HumaLOG) vial - multi-dose SQ SCH ×3 (09:12→19:21)
[2020-02-11] MEDS: pantoprazole 40mg Tablet.DR PO SCH (09:50)
[2020-02-11] MEDS ORDERED: RIZA10TA27 PO (09:52)
[2020-02-11] MEDS ORDERED: INSU100I31 (09:52)
--- NOTE | 2020-02-11 10:15 | NUR ---
Pt noted to have a seizure while in CT which lasted a minute. Pt transported back up via gurney and had another seizure lasting about 15 seconds.
[2020-02-11] MEDS ORDERED: levetiracetam-NS 1000mg/100ml 100 ML IV ONE (10:25)
[2020-02-11 11:00] VITALS: BP 126/67
[2020-02-11] MEDS: metoclopramide 5 mg/ml inj IV PRN (12:19)
[2020-02-11] MEDS: LORazepam 2 mg/ml vial IV PRN (12:26)
--- NOTE | 2020-02-11 13:27 | NUR ---
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 Possible distal esophagitis as well per MD. Pt reports unable to take insulin r/t vomiting but uses SQ insulin per EMR. A1C 9.9 down from 10.6 May admit this year improving. Sweet potato/yam severe allergy noted; dietary notified. Advanced to carb controlled diet though still vomiting this AM per EMR. Pt would benefit from written/verbal DM/gastroparesis diet eds once stable prior to discharge w/ emphasis on sick day guidelines. Will continue to monitor. Addendum: 02/11/20 at [address] Amended: Links added.
[2020-02-11 15:00] VITALS: BP 98/44
[2020-02-11 15:56] LABS: H PYLORI ANTIBODY NEGATIVE (Neg)
--- NOTE | 2020-02-11 15:59 | NUR ---
PAGER ID: [phone] MESSAGE: [id number]: Erna Russell - Pt ABGs - PO2 57.6, pCO[facility]9 [phone]
[2020-02-11 18:00] VITALS: BP 126/66
--- NOTE | 2020-02-11 18:05 | NUR ---
Problems reprioritized. Patient report given, questions answered & plan of care reviewed with RUDOLPH Rich.
--- NOTE | 2020-02-11 18:30 | NUR ---
Patient in room PCU 3027. I have received report from Anaid GALDAMEZ and had the opportunity to ask questions and assume patient care.
[2020-02-11] MEDS ORDERED: temazepam 15mg capsule PO PRN (21:00)
[2020-02-11] MEDS ORDERED: SUMAtriptan 25 MG tablet PO ONE (21:15)
[2020-02-11] MEDS: insulin glargine (Lantus) pen - multi-dose SQ SCH (21:23)
[2020-02-11 22:00] VITALS: BP 128/60
[2020-02-12] VITALS (9 sets, daily range): BP systolic 123–144; BP diastolic 63–79
[2020-02-12] MEDS: metoclopramide 5 mg/ml inj IV PRN ×3 (01:12→14:59)
--- NOTE | 2020-02-12 01:35 | NUR ---
Patient refuses to be darted until morning. I will send a note to the dart nurse.
[2020-02-12 05:00] LABS: BASOPHILS # (AUTO) 0.1 X10'3 (0-0.2); EOSINOPHILS % (AUTO) 0.1 % (0-6); HEMATOCRIT 29.8 % (35.0-45.0); LYMPHOCYTES # (AUTO) 3.1 X10'3 (1.1-4.8); LYMPHOCYTES % (AUTO) 28.1 % (21-51); MEAN CORPUSCULAR HGB CONC 33.6 g/dL (33.0-36.5); MEAN CORPUSCULAR VOLUME 89.3 FL (78-98); MEAN PLATELET VOLUME 8.6 FL (7.4-10.4); MONOCYTES # (AUTO) 0.6 X10'3 (0-0.9); MONOCYTES % (AUTO) 5.2 % (2-12); NEUTROPHILS # (AUTO) 7.2 X10'3 (1.8-7.7); NEUTROPHILS % (AUTO) 65.6 % (42-75); PLATELET COUNT 215 X10'3 (140-440); RED BLOOD COUNT 3.34 X10'6 (4.20-5.60); RED CELL DISTRIBUTION WIDTH 13.7 % (11.5-14.5)
[2020-02-12 05:13] LABS: ALANINE AMINOTRANSFERASE 15 U/L (12-78); ALBUMIN 2.8 G/DL (3.4-5.0); ALBUMIN/GLOBULIN RATIO 0.8 (1.1-1.5); ALKALINE PHOSPHATASE 65 IU/L (46-116); ANION GAP 8 (8-16); ASPARTATE AMINO TRANSFERASE 11 U/L (10-37); BILIRUBIN,TOTAL 0.3 MG/DL (0.1-1.0); BLOOD UREA NITROGEN 23 MG/DL (7-18); BUN/CREATININE RATIO 29.9 (6.6-38.0); CALCIUM 8.1 MG/DL (8.5-10.1); CHLORIDE 110 MMOL/L (99-107); CHOL/HDL RATIO 3.5 (0.00-4.99); CHOLESTEROL 230 MG/DL (0-200); CREATININE 0.77 MG/DL (0.40-0.90); GLUCOSE 110 MG/DL (70-104); HDL CHOLESTEROL 66 MG/DL (35-60); LDL CHOLESTEROL 128 MG/DL (50-100); MAGNESIUM 1.9 MG/DL (1.5-2.4); PHOSPHORUS 2.4 MG/DL (2.3-4.5); SODIUM 144 MMOL/L (135-145); TOTAL PROTEIN 6.1 G/DL (6.4-8.2); TRIGLYCERIDES 170 MG/DL (20-135); eGFR 76 ML/MIN
[2020-02-12 05:15] LABS: POTASSIUM 2.9 MMOL/L (3.5-5.1)
--- NOTE | 2020-02-12 05:19 | NUR ---
MESSAGE: re: Jason Zuñiga rm 3027 A critical value Potassium 2.9
[2020-02-12] MEDS: potassium Cl 20 mEq SR tablet PO PRN ×3 (05:37→14:59)
--- NOTE | 2020-02-12 06:20 | NUR ---
Patient in room PCU 3027. I have received report from Layla GALDAMEZ and had the opportunity to ask questions and assume patient care.
--- NOTE | 2020-02-12 06:24 | NUR ---
Problems reprioritized. Patient report given, questions answered & plan of care reviewed with Arnel GALDAMEZ.
[2020-02-12] MEDS: K and/or MAG REPLACEMENT MC SCH ×2 (08:00→20:01)
[2020-02-12] MEDS ORDERED: levetiracetam 250mg tablet PO SCH (08:15)
[2020-02-12] MEDS: gabapentin 300mg capsule PO SCH ×4 (08:43→20:23)
[2020-02-12] MEDS: pantoprazole 40mg Tablet.DR PO SCH (08:44)
[2020-02-12] MEDS: heparin, porcine 5000 units/ml vial SQ SCH ×2 (08:44→20:27)
[2020-02-12] MEDS: normal saline 1000ml 1,000 ML IV SCH ×2 (08:49→17:22)
[2020-02-12] MEDS: morphine 2 MG/ML inj. syringe IV PRN ×2 (09:19→17:19)
[2020-02-12] MEDS: HYDROcodone/acetaminophen 10/325mg tab PO PRN (12:27)
--- NOTE | 2020-02-12 13:16 | NUR ---
F/u for DM consult: Pt continues with c/o persistent nausea per physician notes. Pt also documented with 12/31 abdominal pain. Will f/u at another time for educations. Malnutrition consult: Pt reports 2-13 lb wt loss with decreased appetite per malnutrition risk screen with RN. Pt with no documented decrease in muscle strength or edema. Current poor PO intake likely r/t persistent nausea with abdominal pain. Current scaled weight is +5-8 kg from recent reported wt hx and is 97% IBW. Pt appears well developed, well nourished per H&P. Pt currently lacks a minimum of two criteria for malnutrition. Will continue to follow. Addendum: 02/12/20 at [address] Amended: Links added.
[2020-02-12] MEDS: SUMAtriptan 25 MG tablet PO PRN (15:00)
--- NOTE | 2020-02-12 18:20 | NUR ---
Problems reprioritized. Patient report given, questions answered & plan of care reviewed with Layla GALDAMEZ.
--- NOTE | 2020-02-12 18:37 | NUR ---
Patient in room PCU 3027. I have received report from Arnel GALDAMEZ and had the opportunity to ask questions and assume patient care.
[2020-02-12] MEDS: LORazepam 2 mg/ml vial IV PRN (19:13)
--- NOTE | 2020-02-12 19:14 | NUR ---
Called rapid response patient was found having a tonic clonic seizure at 1850. Administered first dose of ativan immediately 2mg. BP 146/76, 99% put on 6L NC, kept head up and cleared airway. Put continued to have seizures continued to admin ativan up to 6mg total ativan given. Was able to reach Dr. Madden with [facility] discussed patients case. Recieved order for IV keppra 1000mg stat. Will continue to admin. Addendum: 02/12/20 at 1917 by Cuba Molina RN Pt seizure stopped and able to converse, voice is slurred/sluggish. Addendum: 02/12/20 at 1935 by Cuba Molina RN Let the record note that 6mg of ativan was given over the course of 20mins in doses of 2mg at a time.
[2020-02-12] MEDS ORDERED: LORazepam 2 mg/ml vial IV ONE ×3 (19:25)
--- NOTE | 2020-02-12 19:38 | NUR ---
Patient being monitored post seizure, notified by staff that rapid was called while performing patient care in isolation room.
[2020-02-12] MEDS: insulin Lispro (HumaLOG) vial - multi-dose SQ SCH (20:00)
[2020-02-12] MEDS ORDERED: levetiracetam inj 1,000 MG in normal saline 100ml IV soln 90 ML IV SCH (20:00)
[2020-02-12] MEDS: insulin glargine (Lantus) pen - multi-dose SQ SCH (20:11)
--- NOTE | 2020-02-12 20:12 | NUR ---
Blood sugar 84 patient is a level 3, refused dinner. Holding Humalog and Lantus, patient has had 5 seizures with nausea and vomiting.
--- NOTE | 2020-02-12 20:18 | NUR ---
Notified Dr Madden. RE: Jason Zuñiga rm [id number]. Update: Pt is sleeping, vitals within normal range. Blood sugars have been trending down, most recent is 84. I have held Sports MatchMakeralog and lantus.
[2020-02-13 02:00] VITALS: BP 138/80
[2020-02-13] MEDS: morphine 2 MG/ML inj. syringe IV PRN ×2 (04:54→21:31)
[2020-02-13 05:32] LABS: BASOPHILS # (AUTO) 0.1 X10'3 (0-0.2); BASOPHILS % (AUTO) 0.7 % (0-1); EOSINOPHILS # (AUTO) 0.1 X10'3 (0-0.9); EOSINOPHILS % (AUTO) 1.7 % (0-6); HEMATOCRIT 31.2 % (35.0-45.0); HEMOGLOBIN 10.3 g/dl (12.0-16.0); LYMPHOCYTES # (AUTO) 3.2 X10'3 (1.1-4.8); LYMPHOCYTES % (AUTO) 37.6 % (21-51); MEAN CORPUSCULAR HEMOGLOBIN 29.5 PG (27.0-31.0); MEAN CORPUSCULAR VOLUME 89.2 FL (78-98); MEAN PLATELET VOLUME 9.8 FL (7.4-10.4); MONOCYTES # (AUTO) 0.5 X10'3 (0-0.9); MONOCYTES % (AUTO) 6.3 % (2-12); NEUTROPHILS # (AUTO) 4.5 X10'3 (1.8-7.7); NEUTROPHILS % (AUTO) 53.7 % (42-75); PLATELET COUNT 167 X10'3 (140-440); RED CELL DISTRIBUTION WIDTH 13.8 % (11.5-14.5); WHITE BLOOD COUNT 8.4 X10'3 (4.5-11.0)
[2020-02-13 06:00] VITALS: BP 132/72
--- NOTE | 2020-02-13 06:28 | NUR ---
Patient in room PCU 3027. I have received report from RUDOLPH Rich and had the opportunity to ask questions and assume patient care.
[2020-02-13 06:33] LABS: ALANINE AMINOTRANSFERASE 15 U/L (12-78); ALBUMIN 2.6 G/DL (3.4-5.0); ALBUMIN/GLOBULIN RATIO 0.8 (1.1-1.5); ALKALINE PHOSPHATASE 62 IU/L (46-116); ANION GAP 9 (8-16); ASPARTATE AMINO TRANSFERASE 17 U/L (10-37); BILIRUBIN,TOTAL 0.3 MG/DL (0.1-1.0); BLOOD UREA NITROGEN 14 MG/DL (7-18); BUN/CREATININE RATIO 19.7 (6.6-38.0); CALCIUM 8.3 MG/DL (8.5-10.1); CHLORIDE 110 MMOL/L (99-107); CREATININE 0.71 MG/DL (0.40-0.90); GLUCOSE 116 MG/DL (70-104); MAGNESIUM 1.9 MG/DL (1.5-2.4); PHOSPHORUS 2.3 MG/DL (2.3-4.5); POTASSIUM 4.1 MMOL/L (3.5-5.1); SODIUM 141 MMOL/L (135-145); TOTAL CARBON DIOXIDE 22.3 MMOL/L (24-32); TOTAL PROTEIN 5.7 G/DL (6.4-8.2); eGFR 83 ML/MIN
[2020-02-13] MEDS: SUMAtriptan 25 MG tablet PO PRN (06:48)
[2020-02-13] MEDS: normal saline 1000ml 1,000 ML IV SCH ×2 (07:46→21:00)
[2020-02-13] MEDS: levetiracetam-NS 1000mg/100ml 100 ML IV SCH ×2 (07:47→21:26)
[2020-02-13] MEDS: gabapentin 300mg capsule PO SCH ×4 (07:47→21:26)
[2020-02-13] MEDS: pantoprazole 40mg Tablet.DR PO SCH (07:47)
[2020-02-13] MEDS: heparin, porcine 5000 units/ml vial SQ SCH ×2 (07:48→21:28)
[2020-02-13] MEDS: K and/or MAG REPLACEMENT MC SCH ×2 (08:00→20:00)
--- NOTE | 2020-02-13 08:10 | NUR ---
RAPID RESPONSE CALLED ON PATIENT, FOUND SLUMPED OVER IN BATHROOM AFTER PULLING BATHROOM CORD. PATIENT UNRESPONSIVE TO ALL STIMULI. RAPID CALLED AT THIS TIME. PATIENT BACK TO BED BY STAFF. VS OBTAINED. DR. JAY NOTIFIED OF PATIENT CONDITION, ORDERS TO CONTINUE KEPPRA IV, MONITOR, AND NOTIFY WITH ANY CHANGES. SEE RAPID RESPONSE REPORT FOR FURTHER INFORMATION.
[2020-02-13] MEDS: HYDROcodone/acetaminophen 10/325mg tab PO PRN ×2 (09:18→19:19)
[2020-02-13 11:00] VITALS: BP 150/79
--- NOTE | 2020-02-13 11:17 | NUR ---
PAGER ID: [phone] MESSAGE: Re; Jason Zuñiga. Neuro consult is completed and report has been made. Annmarie N #[id number]
[2020-02-13] MEDS ORDERED: clonazePAM 1mg tablet PO ONE (11:55)
[2020-02-13] MEDS: ondansetron/PF 4mg/2ml inj IV PRN (12:32)
[2020-02-13] MEDS: LORazepam 2 mg/ml vial IV PRN (13:03)
--- NOTE | 2020-02-13 13:12 | NUR ---
PATIENT HAD WITNESSED TONIC/CLONIC SEIZURE, GIVEN ATIVAN 0.5MG IV. PT THEN CONTINUED TO HAVE 2 MORE WITNESSED TONIC CLONIC SEIZURES, VS STABLE DURING, OBSERVED AT BEDSIDE. PAGED HOSPITALIST, DR. JAY, AT THIS TIME REGARDING CHANGE IN CONDITION.
--- NOTE | 2020-02-13 13:20 | NUR ---
Patients vital signs during seizure: 156/75, 97% on RA. Patient's vital signs 10 minutes after seizure; 171/80. 98%
[2020-02-13] MEDS: insulin Lispro (HumaLOG) vial - multi-dose SQ SCH (13:27)
[2020-02-13 15:00] VITALS: BP 133/74
--- NOTE | 2020-02-13 17:16 | NUR ---
PAGER ID: [phone] MESSAGE: RIKI Richter [phone]. RE [id number]. DID YOU TALK TO [facility] OR [facility] FOR TRANSFER? I WAS TOLD [facility]. THANKS!
[2020-02-13 18:00] VITALS: BP 136/71
--- NOTE | 2020-02-13 18:27 | NUR ---
Patient in room PCU 3027. I have received report from Annmarie GALDAMEZ and had the opportunity to ask questions and assume patient care.
--- NOTE | 2020-02-13 18:29 | NUR ---
Problems reprioritized. Patient report given, questions answered & plan of care reviewed with RUDOLPH Acevedo.
[2020-02-13] MEDS: metoclopramide 5 mg/ml inj IV PRN (19:18)
[2020-02-13] MEDS: clonazePAM 1mg tablet PO SCH (21:26)
[2020-02-13 22:00] VITALS: BP 131/69
[2020-02-13] MEDS: insulin glargine (Lantus) pen - multi-dose SQ SCH (22:04)
[2020-02-14 02:00] VITALS: BP 115/80
[2020-02-14] MEDS: normal saline 1000ml 1,000 ML IV SCH (02:03)
[2020-02-14] MEDS: HYDROcodone/acetaminophen 10/325mg tab PO PRN ×2 (03:07→07:36)
[2020-02-14 05:52] LABS: HEMOGLOBIN 11.5 g/dl (12.0-16.0); WHITE BLOOD COUNT 4.9 X10'3 (4.5-11.0)
[2020-02-14 05:56] LABS: BASOPHILS % (AUTO) 0.8 % (0-1); EOSINOPHILS # (AUTO) 0.2 X10'3 (0-0.9); EOSINOPHILS % (AUTO) 3.6 % (0-6); HEMATOCRIT 33.9 % (35.0-45.0); LYMPHOCYTES # (AUTO) 1.9 X10'3 (1.1-4.8); LYMPHOCYTES % (AUTO) 38.9 % (21-51); MEAN CORPUSCULAR HEMOGLOBIN 29.9 PG (27.0-31.0); MEAN CORPUSCULAR HGB CONC 33.9 g/dL (33.0-36.5); MEAN CORPUSCULAR VOLUME 88.1 FL (78-98); MEAN PLATELET VOLUME 8.7 FL (7.4-10.4); MONOCYTES # (AUTO) 0.4 X10'3 (0-0.9); MONOCYTES % (AUTO) 7.8 % (2-12); NEUTROPHILS # (AUTO) 2.4 X10'3 (1.8-7.7); NEUTROPHILS % (AUTO) 48.9 % (42-75); PLATELET COUNT 239 X10'3 (140-440); RED BLOOD COUNT 3.84 X10'6 (4.20-5.60); RED CELL DISTRIBUTION WIDTH 13.5 % (11.5-14.5)
[2020-02-14 06:00] VITALS: BP 133/82
[2020-02-14 06:13] LABS: ALANINE AMINOTRANSFERASE 15 U/L (12-78); ALBUMIN 2.7 G/DL (3.4-5.0); ALBUMIN/GLOBULIN RATIO 0.8 (1.1-1.5); ALKALINE PHOSPHATASE 64 IU/L (46-116); ANION GAP 10 (8-16); ASPARTATE AMINO TRANSFERASE 13 U/L (10-37); BILIRUBIN,TOTAL 0.2 MG/DL (0.1-1.0); BLOOD UREA NITROGEN 16 MG/DL (7-18); BUN/CREATININE RATIO 16.5 (6.6-38.0); CALCIUM 8.2 MG/DL (8.5-10.1); CHLORIDE 105 MMOL/L (99-107); CREATININE 0.97 MG/DL (0.40-0.90); GLUCOSE 259 MG/DL (70-104); MAGNESIUM 1.6 MG/DL (1.5-2.4); PHOSPHORUS 3.6 MG/DL (2.3-4.5); POTASSIUM 3.6 MMOL/L (3.5-5.1); SODIUM 142 MMOL/L (135-145); TOTAL CARBON DIOXIDE 27.4 MMOL/L (24-32); TOTAL PROTEIN 6.1 G/DL (6.4-8.2); eGFR 58 ML/MIN
--- NOTE | 2020-02-14 06:55 | NUR ---
Problems reprioritized. Patient report given, questions answered & plan of care reviewed with Annmarie GALDAMEZ.
[2020-02-14] MEDS: pantoprazole 40mg Tablet.DR PO SCH (07:36)
[2020-02-14] MEDS: gabapentin 300mg capsule PO SCH (07:36)
[2020-02-14] MEDS: clonazePAM 1mg tablet PO SCH (07:36)
[2020-02-14] MEDS: heparin, porcine 5000 units/ml vial SQ SCH (07:37)
[2020-02-14] MEDS: ondansetron/PF 4mg/2ml inj IV PRN (07:37)
[2020-02-14] MEDS: insulin Lispro (HumaLOG) vial - multi-dose SQ SCH (07:55)
[2020-02-14] MEDS: SUMAtriptan 25 MG tablet PO PRN (07:59)
--- NOTE | 2020-02-14 08:03 | NUR ---
PAGER ID: [phone] MESSAGE: Re: Jason Zuñiga. [id number]. Pt. preparing to transfer to [place]. Do you want me to continue the Keppra 1gm IV? Annmarie Harper [phone]
--- NOTE | 2020-02-14 08:30 | NUR ---
Pt. stable for transfer per md orders. [place] [facility] [place] for questioning, all questions answered. [facility] ambulance crew arrived arrived to take patient via ambulance. Morning medications were given and insulin was covered. Patient had a patent IV within the left forearm, saline locked. Pt. taken via gurney.
--- NOTE | 2020-02-14 12:31 | NUR ---
F/u (02/13): Pt discharged prior to RD visit; nausea not r/t gastroparesis per EMR. Written DM ed w/ RD contact information mailed to pt home address. Addendum: 02/14/20 at [address] Amended: Links added.
== END 2020-02-14 08:33 | disposition short-term general hospital (02) | DRG 53 ==
LOC: ER 02:43 → ED HOLD 04:03 → PCU 3S 07:10
PROVIDERS: ADMIT Family Medicine; ATTEND Internal Medicine
DX: G40.89 Other seizures (principal); E11.22 Type 2 diabetes mellitus with diabetic chronic kidney disease; E11.65 Type 2 diabetes mellitus with hyperglycemia; E86.0 Dehydration; E87.2 Acidosis; G43.909 Migraine, unspecified, not intractable, without status migrainosus; I25.10 Atherosclerotic heart disease of native coronary artery without angina pectoris; N17.9 Acute kidney failure, unspecified; D69.6 Thrombocytopenia, unspecified; N18.9 Chronic kidney disease, unspecified; E87.6 Hypokalemia; D64.9 Anemia, unspecified; Z82.3 Family history of stroke; Z82.5 Family history of asthma and other chronic lower respiratory diseases; Z83.3 Family history of diabetes mellitus; Z90.49 Acquired absence of other specified parts of digestive tract; I25.2 Old myocardial infarction; Z90.710 Acquired absence of both cervix and uterus; Z88.0 Allergy status to penicillin; Z88.8 Allergy status to other drugs, medicaments and biological substances; Z79.899 Other long term (current) drug therapy
CPT/HCPCS: 36415; 36600; 74176; 76937; 80053; 80061; 80305; 81001; 82803; 82948; 83036; 83605; 83690; 83735; 84100; 84132; 84145; 85018; 85025; 86677; 87040; 87081; 87635; 93005; 97110; 97116; 97162; 97530; 99285; G0378; J1644; J1815; J1953; J2060; J2270; J2405; J2765; J7030; Q9963

== ENCOUNTER 2020-02-19 03:24 | Emergency (ER) | payer MEDICAID ==
[~2020-02-19] VITALS: Ht 152.4 cm; Wt 52.3 kg
[~2020-02-19 03:24] MED LIST changes: -FAMO40TA73 PO; +INSU100I31; -LEVE250T PO; -PANT20TA3 PO; +RIZA10TA27 PO; -SUCR1TAB PO; -SUMA20SP
--- NOTE | 2020-02-19 03:42 | NUR ---
DAUGHTER LÓPEZ RAI [phone]. PT REPORTS SHE IS HOMELESS AND LIVING IN A HOTEL IN [place] WITH HER AT THIS TIME.
[2020-02-19] MEDS ORDERED: haloperidol lactate 5mg/ml inj IM ONE (03:55)
[2020-02-19] MEDS ORDERED: diphenhydrAMINE 50 mg/ml inj IV ONE (03:55)
[2020-02-19] MEDS ORDERED: normal saline 1000ml 1,000 ML IV ONE (03:55)
[2020-02-19 04:32] LABS: BASOPHILS # (AUTO) 0.1 X10'3 (0-0.2); BASOPHILS % (AUTO) 0.8 % (0-1); EOSINOPHILS # (AUTO) 0.1 X10'3 (0-0.9); HEMATOCRIT 33.6 % (35.0-45.0); HEMOGLOBIN 11.1 g/dl (12.0-16.0); LYMPHOCYTES # (AUTO) 1.7 X10'3 (1.1-4.8); LYMPHOCYTES % (AUTO) 18.9 % (21-51); MEAN CORPUSCULAR VOLUME 87.8 FL (78-98); MEAN PLATELET VOLUME 8.4 FL (7.4-10.4); MONOCYTES # (AUTO) 0.8 X10'3 (0-0.9); NEUTROPHILS # (AUTO) 6.3 X10'3 (1.8-7.7); NEUTROPHILS % (AUTO) 70.3 % (42-75); PLATELET COUNT 281 X10'3 (140-440); RED BLOOD COUNT 3.82 X10'6 (4.20-5.60); RED CELL DISTRIBUTION WIDTH 13.7 % (11.5-14.5)
[2020-02-19 04:38] LABS: ALANINE AMINOTRANSFERASE 24 U/L (12-78); ALBUMIN 3.6 G/DL (3.4-5.0); ALBUMIN/GLOBULIN RATIO 0.9 (1.1-1.5); ALKALINE PHOSPHATASE 88 IU/L (46-116); ANION GAP 9 (8-16); ASPARTATE AMINO TRANSFERASE 15 U/L (10-37); BILIRUBIN,TOTAL 0.4 MG/DL (0.1-1.0); BLOOD UREA NITROGEN 20 MG/DL (7-18); BUN/CREATININE RATIO 14.9 (6.6-38.0); CALCIUM 8.9 MG/DL (8.5-10.1); CHLORIDE 100 MMOL/L (99-107); CREATININE 1.34 MG/DL (0.40-0.90); GLUCOSE 252 MG/DL (70-104); LIPASE 141 U/L (73-393); POTASSIUM 3.8 MMOL/L (3.5-5.1); SODIUM 140 MMOL/L (135-145); TOTAL CARBON DIOXIDE 31.5 MMOL/L (24-32); TOTAL PROTEIN 7.6 G/DL (6.4-8.2); eGFR 40 ML/MIN
[2020-02-19 04:39] LABS: CLARITY,URINE SLIGHTLY CLOUDY (Clear); COLOR,URINE YELLOW (Yellow); GLUCOSE, URINE 250 mg/dl (Neg); KETONES,URINE NEGATIVE (Neg); LEUKOCYTE ESTERASE ,URINE SMALL (Neg); NITRITES, URINE NEGATIVE (Neg); OCCULT BLOOD,URINE NEGATIVE (Neg); PH,URINE 7.5 (4.8-8.0); PROTEIN,URINE 100 mg/dl (Neg); UA COLLECTION TYPE NON-SPECIFIED
--- NOTE | 2020-02-19 04:41 | NUR ---
daughter called and updated, pt now talking with her.
[2020-02-19 04:44] LABS: BACTERIA,URINE 1+ /HPF (Neg); RBC,URINE NONE SEEN /HPF (0-2); SQUAMOUS EPITHELIAL CELL,UR FEW /LPF (FEW)
[2020-02-19 04:45] LABS: WBC,URINE 30-50 /HPF (0-4)
[2020-02-19] MEDS ORDERED: ONDA4TAB6 PO (04:48)
[2020-02-19 05:11] VITALS: BP 152/75
== END 2020-02-19 05:31 | disposition home or self-care (01) ==
LOC: ER 03:25
DX: R11.2 Nausea with vomiting, unspecified (principal); R10.10 Upper abdominal pain, unspecified; G43.909 Migraine, unspecified, not intractable, without status migrainosus; I25.2 Old myocardial infarction; E11.9 Type 2 diabetes mellitus without complications; Z86.69 Personal history of other diseases of the nervous system and sense organs; Z90.49 Acquired absence of other specified parts of digestive tract; Z90.710 Acquired absence of both cervix and uterus; Z87.891 Personal history of nicotine dependence; Z56.0 Unemployment, unspecified; Z88.0 Allergy status to penicillin; Z88.1 Allergy status to other antibiotic agents; Z91.040 Latex allergy status; Z88.5 Allergy status to narcotic agent; Z79.4 Long term (current) use of insulin; Z79.899 Other long term (current) drug therapy
CPT/HCPCS: 36415; 80053; 81001; 83690; 85025; 87088; 96361; 96372; 96374; 99284; J1200; J1630; J7030

== ENCOUNTER 2020-02-22 00:41 | Emergency (ER) | payer MEDICAID ==
[~2020-02-22] VITALS: Ht 152.4 cm; Wt 51.8 kg
[~2020-02-22 00:41] MED LIST changes: +ONDA4TAB6 PO
[2020-02-22] MEDS ORDERED: famotidine/PF 10 mg/ml inj IV ONE (00:55)
[2020-02-22] MEDS ORDERED: ondansetron/PF 4mg/2ml inj IV ONE (00:55)
[2020-02-22] MEDS ORDERED: normal saline 1000ml 1,000 ML IV ONE ×2 (00:55→01:45)
[2020-02-22] MEDS ORDERED: pantoprazole 40 MG vial IV ONE (00:55)
[2020-02-22] MEDS ORDERED: metoclopramide 5 mg/ml inj IV ONE (00:55)
[2020-02-22] MEDS ORDERED: fentaNYL/PF 50MCG/1 ML 2ML syringe IV ONE (00:55)
[2020-02-22] MEDS ORDERED: levetiracetam inj 1,000 MG in normal saline 100ml IV soln 90 ML IV ONE (01:05)
[2020-02-22] MEDS ORDERED: LORazepam 2 mg/ml vial IV ONE ×3 (01:05→01:20)
[2020-02-22] MEDS ORDERED: levetiracetam-NS 1000mg/100ml 100 ML IV ONE (01:05)
--- NOTE | 2020-02-22 01:12 | NUR ---
Pt had a seizure. Dr. Argueta to bedside. Pt given 0.5mg of ativan and then had two more seizures. Pt is posticital, seizure pads on bed.
[2020-02-22] MEDS ORDERED: LORazepam 2 mg/ml vial ONE (01:15)
[2020-02-22 01:18] LABS: BASOPHILS % (AUTO) 0.4 % (0-1); EOSINOPHILS % (AUTO) 0 % (0-6); HEMATOCRIT 36.6 % (35.0-45.0); HEMOGLOBIN 12.3 g/dl (12.0-16.0); LYMPHOCYTES # (AUTO) 0.9 X10'3 (1.1-4.8); LYMPHOCYTES % (AUTO) 11.8 % (21-51); MEAN CORPUSCULAR HEMOGLOBIN 29.5 PG (27.0-31.0); MEAN CORPUSCULAR HGB CONC 33.6 g/dL (33.0-36.5); MEAN CORPUSCULAR VOLUME 87.8 FL (78-98); MEAN PLATELET VOLUME 7.6 FL (7.4-10.4); MONOCYTES # (AUTO) 0.5 X10'3 (0-0.9); MONOCYTES % (AUTO) 6.5 % (2-12); NEUTROPHILS # (AUTO) 6.3 X10'3 (1.8-7.7); NEUTROPHILS % (AUTO) 81.3 % (42-75); PLATELET COUNT 367 X10'3 (140-440); RED BLOOD COUNT 4.17 X10'6 (4.20-5.60); RED CELL DISTRIBUTION WIDTH 13.5 % (11.5-14.5); WHITE BLOOD COUNT 7.7 X10'3 (4.5-11.0)
[2020-02-22 01:34] LABS: ALANINE AMINOTRANSFERASE 22 U/L (12-78); ALBUMIN 3.9 G/DL (3.4-5.0); ALBUMIN/GLOBULIN RATIO 0.9 (1.1-1.5); ALKALINE PHOSPHATASE 92 IU/L (46-116); ANION GAP 11 (8-16); ASPARTATE AMINO TRANSFERASE 12 U/L (10-37); BILIRUBIN,TOTAL 0.3 MG/DL (0.1-1.0); BLOOD UREA NITROGEN 28 MG/DL (7-18); BUN/CREATININE RATIO 16.5 (6.6-38.0); CALCIUM 9.2 MG/DL (8.5-10.1); CHLORIDE 93 MMOL/L (99-107); GLUCOSE 410 MG/DL (70-104); LIPASE 621 U/L (73-393); POTASSIUM 3.2 MMOL/L (3.5-5.1); SODIUM 137 MMOL/L (135-145); TOTAL CARBON DIOXIDE 32.7 MMOL/L (24-32); TOTAL PROTEIN 8.4 G/DL (6.4-8.2); eGFR 30 ML/MIN
[2020-02-22] MEDS ORDERED: potassium Cl 20 mEq SR tablet PO STA (01:44)
[2020-02-22] MEDS ORDERED: potassium Cl 10 mEq/100mL bag IV ONE (01:45)
[2020-02-22] MEDS ORDERED: ONDA8TAB6 PO (03:00)
[2020-02-22 04:50] VITALS: BP 133/67
== END 2020-02-22 04:51 | disposition home or self-care (01) ==
LOC: ER 00:42
DX: R11.10 Vomiting, unspecified (principal); R74.8 Abnormal levels of other serum enzymes; R10.12 Left upper quadrant pain; G43.909 Migraine, unspecified, not intractable, without status migrainosus; I25.2 Old myocardial infarction; E11.9 Type 2 diabetes mellitus without complications; F12.90 Cannabis use, unspecified, uncomplicated; Z90.49 Acquired absence of other specified parts of digestive tract; Z90.710 Acquired absence of both cervix and uterus; Z86.69 Personal history of other diseases of the nervous system and sense organs; Z56.0 Unemployment, unspecified; Z88.0 Allergy status to penicillin; Z88.8 Allergy status to other drugs, medicaments and biological substances; Z91.040 Latex allergy status; Z88.5 Allergy status to narcotic agent; Z79.899 Other long term (current) drug therapy; Z79.4 Long term (current) use of insulin
CPT/HCPCS: 80053; 83690; 85025; 96361; 96374; 96375; 99285; C9113; J1953; J2060; J2405; J2765; J3010; J3480; J3490; J7030; 96365

== ENCOUNTER 2020-03-03 17:46 | Emergency (ER) | payer MEDICAID ==
[~2020-03-03] VITALS: Ht 152.4 cm; Wt 49.5 kg
[~2020-03-03 17:46] MED LIST changes: +ONDA8TAB6 PO
[2020-03-03] MEDS ORDERED: metoclopramide 5 mg/ml inj IV ONE (18:30)
[2020-03-03] MEDS ORDERED: normal saline 1000ML IV soln IVB ONE (18:30)
[2020-03-03 18:49] LABS: BASOPHILS # (AUTO) 0.1 X10'3 (0-0.2); BASOPHILS % (AUTO) 0.7 % (0-1); EOSINOPHILS % (AUTO) 0.1 % (0-6); HEMATOCRIT 37.2 % (35.0-45.0); HEMOGLOBIN 12.3 g/dl (12.0-16.0); LYMPHOCYTES # (AUTO) 0.9 X10'3 (1.1-4.8); LYMPHOCYTES % (AUTO) 12.1 % (21-51); MEAN CORPUSCULAR HEMOGLOBIN 28.9 PG (27.0-31.0); MEAN CORPUSCULAR HGB CONC 33.2 g/dL (33.0-36.5); MEAN CORPUSCULAR VOLUME 87.2 FL (78-98); MEAN PLATELET VOLUME 8.1 FL (7.4-10.4); MONOCYTES # (AUTO) 0.3 X10'3 (0-0.9); MONOCYTES % (AUTO) 3.8 % (2-12); NEUTROPHILS # (AUTO) 6.4 X10'3 (1.8-7.7); NEUTROPHILS % (AUTO) 83.3 % (42-75); PLATELET COUNT 335 X10'3 (140-440); RED BLOOD COUNT 4.27 X10'6 (4.20-5.60); RED CELL DISTRIBUTION WIDTH 13.8 % (11.5-14.5); WHITE BLOOD COUNT 7.6 X10'3 (4.5-11.0)
[2020-03-03 19:08] LABS: ALANINE AMINOTRANSFERASE 20 U/L (12-78); ALBUMIN 3.6 G/DL (3.4-5.0); ALBUMIN/GLOBULIN RATIO 0.8 (1.1-1.5); ALKALINE PHOSPHATASE 101 IU/L (46-116); ANION GAP 9 (8-16); ASPARTATE AMINO TRANSFERASE 11 U/L (10-37); BILIRUBIN,TOTAL 0.3 MG/DL (0.1-1.0); BLOOD UREA NITROGEN 32 MG/DL (7-18); CHLORIDE 98 MMOL/L (99-107); CREATININE 1.39 MG/DL (0.40-0.90); GLUCOSE 413 MG/DL (70-104); LIPASE 493 U/L (73-393); MAGNESIUM 1.6 MG/DL (1.5-2.4); POTASSIUM 4.7 MMOL/L (3.5-5.1); SODIUM 135 MMOL/L (135-145); TOTAL CARBON DIOXIDE 28.1 MMOL/L (24-32); TOTAL PROTEIN 7.9 G/DL (6.4-8.2); eGFR 38 ML/MIN
--- NOTE | 2020-03-03 19:55 | NUR ---
MASOUD [phone] STAYING AT [place] [id number]
[2020-03-03 20:33] LABS: CLARITY,URINE CLEAR (Clear); COLOR,URINE YELLOW (Yellow); GLUCOSE, URINE >=1000 mg/dl (Neg); KETONES,URINE 15 mg/dl (Neg); LEUKOCYTE ESTERASE ,URINE NEGATIVE (Neg); NITRITES, URINE NEGATIVE (Neg); OCCULT BLOOD,URINE NEGATIVE (Neg); PH,URINE 5.5 (4.8-8.0); PROTEIN,URINE TRACE mg/dl (Neg); UROBILINOGEN,URINE 0.2 E.U/dL (0.2-1.0)
[2020-03-03] MEDS ORDERED: ondansetron/PF 4mg/2ml inj IV ONE ×2 (20:35→21:20)
[2020-03-03 20:39] LABS: RBC,URINE NONE SEEN /HPF (0-2); UA COLLECTION TYPE CLN CATCH MIDSTREAM; WBC,URINE NONE SEEN /HPF (0-4)
[2020-03-03 20:40] LABS: BACTERIA,URINE NONE SEEN /HPF (Neg); SQUAMOUS EPITHELIAL CELL,UR FEW /LPF (FEW)
[2020-03-03 21:44] VITALS: BP 131/60
== END 2020-03-03 22:02 | disposition home or self-care (01) ==
LOC: ER 17:46
DX: K52.89 Other specified noninfective gastroenteritis and colitis (principal); R11.2 Nausea with vomiting, unspecified; R19.7 Diarrhea, unspecified; G43.909 Migraine, unspecified, not intractable, without status migrainosus; I25.2 Old myocardial infarction; E11.9 Type 2 diabetes mellitus without complications; F12.90 Cannabis use, unspecified, uncomplicated; Z86.69 Personal history of other diseases of the nervous system and sense organs; Z90.89 Acquired absence of other organs; Z90.710 Acquired absence of both cervix and uterus; Z56.0 Unemployment, unspecified; Z88.0 Allergy status to penicillin; Z88.1 Allergy status to other antibiotic agents; Z88.8 Allergy status to other drugs, medicaments and biological substances; Z91.040 Latex allergy status; Z88.5 Allergy status to narcotic agent; Z79.4 Long term (current) use of insulin; Z79.899 Other long term (current) drug therapy
CPT/HCPCS: 36415; 80053; 81001; 83690; 83735; 85025; 96374; 96375; 96376; 99284; J2405; J2765; J7030

== ENCOUNTER 2022-04-01 13:50 | Emergency (ER) | payer MEDICAID ==
[~2022-04-01] VITALS: Ht 152.4 cm; Wt 53.2 kg
[~2022-04-01 13:50] MED LIST changes: +RIZA-5 PO; -RIZA10TA27 PO
[2022-04-01] MEDS ORDERED: normal saline 1000ML IV soln IVB ONE (14:30)
[2022-04-01] MEDS ORDERED: levetiracetam inj 1,000 MG in normal saline 100ml IV soln 90 ML IV STA (14:30)
[2022-04-01] MEDS ORDERED: LORazepam 2 mg/ml vial ONE (14:32)
[2022-04-01] MEDS ORDERED: levetiracetam inj 1,000 MG in normal saline 100ml IV soln 100 ML IV STA (14:34)
[2022-04-01] MEDS ORDERED: LORazepam 2 mg/ml vial IV ONE (14:36)
[2022-04-01] MEDS ORDERED: magnesium 2GM in 50ml NS 50 ML IV ONE (14:36)
[2022-04-01] MEDS ORDERED: ondansetron/PF 4mg/2ml inj IV ONE (14:40)
[2022-04-01 14:45] LABS: BASOPHILS # (AUTO) 0.1 X10'3 (0-0.2); BASOPHILS % (AUTO) 0.4 % (0-1); EOSINOPHILS % (AUTO) 0 % (0-6); HEMATOCRIT 35.4 % (35.0-45.0); LYMPHOCYTES # (AUTO) 1.5 X10'3 (1.1-4.8); LYMPHOCYTES % (AUTO) 12.1 % (21-51); MEAN CORPUSCULAR HEMOGLOBIN 27.5 PG (27.0-31.0); MEAN PLATELET VOLUME 7.6 FL (7.4-10.4); MONOCYTES # (AUTO) 0.5 X10'3 (0-0.9); MONOCYTES % (AUTO) 4.2 % (2-12); NEUTROPHILS # (AUTO) 10.4 X10'3 (1.8-7.7); NEUTROPHILS % (AUTO) 83.3 % (42-75); PLATELET COUNT 374 X10'3 (140-440); RED BLOOD COUNT 4.38 X10'6 (4.20-5.60); WHITE BLOOD COUNT 12.5 X10'3 (4.5-11.0)
[2022-04-01 14:54] LABS: ALANINE AMINOTRANSFERASE 17 U/L (12-78); ALBUMIN/GLOBULIN RATIO 0.9 (1.1-1.5); ALKALINE PHOSPHATASE 105 IU/L (46-116); ANION GAP 14 (8-16); ASPARTATE AMINO TRANSFERASE 13 U/L (10-37); BILIRUBIN,TOTAL 0.2 MG/DL (0.1-1.0); BLOOD UREA NITROGEN 32 MG/DL (7-18); BUN/CREATININE RATIO 19.8 (6.6-38.0); CALCIUM 9.6 MG/DL (8.5-10.1); CHLORIDE 99 MMOL/L (99-107); CREATINE KINASE 73 U/L (26-192); CREATININE 1.62 MG/DL (0.40-0.90); GLUCOSE 337 MG/DL (70-104); LIPASE 136 U/L (73-393); POTASSIUM 4.6 MMOL/L (3.5-5.1); SODIUM 136 MMOL/L (135-145); TOTAL CARBON DIOXIDE 23.1 MMOL/L (24-32); TOTAL PROTEIN 8.3 G/DL (6.4-8.2); eGFR 32 ML/MIN
[2022-04-01 15:56] LABS: CLARITY,URINE SLIGHTLY CLOUDY (Clear); COLOR,URINE YELLOW (Yellow); GLUCOSE, URINE >=1000 mg/dl (Neg); KETONES,URINE NEGATIVE (Neg); LEUKOCYTE ESTERASE ,URINE NEGATIVE (Neg); NITRITES, URINE NEGATIVE (Neg); OCCULT BLOOD,URINE SMALL (Neg); PROTEIN,URINE 100 mg/dl (Neg); UROBILINOGEN,URINE 0.2 E.U/dL (0.2-1.0)
[2022-04-01 16:00] LABS: UA COLLECTION TYPE STRAIGHT CATH
[2022-04-01 16:06] LABS: AMORPHOUS URATES 2+
[2022-04-01 16:08] LABS: BACTERIA,URINE FEW /HPF (Neg); RBC,URINE 0-2 /HPF (0-2); SQUAMOUS EPITHELIAL CELL,UR FEW /LPF (FEW); URINE HCG NEGATIVE (NEG); WBC CLUMPS,URINE FEW /HPF (NEGATIVE)
[2022-04-01 16:09] LABS: FINE GRANULAR CAST 0-3 /LPF (NEGATIVE)
[2022-04-01] MEDS ORDERED: CefTRIAXone/D5W-Rocephin 1gm 50 ML IV ONE (16:25)
[2022-04-01] MEDS ORDERED: ONDA4TAB12 PO (16:27)
[2022-04-01] MEDS ORDERED: CEPH250T PO (16:27)
[2022-04-01 17:06] VITALS: BP 139/66
--- NOTE | 2022-04-01 17:11 | NUR ---
called pt daughter at [phone]. she will be her in 30-45 min
== END 2022-04-01 17:40 | disposition home or self-care (01) ==
LOC: ER 13:50
DX: N39.0 Urinary tract infection, site not specified (principal); R11.2 Nausea with vomiting, unspecified; R56.9 Unspecified convulsions; E11.9 Type 2 diabetes mellitus without complications; I25.2 Old myocardial infarction; G43.909 Migraine, unspecified, not intractable, without status migrainosus; F17.200 Nicotine dependence, unspecified, uncomplicated; F12.90 Cannabis use, unspecified, uncomplicated; Z90.710 Acquired absence of both cervix and uterus; Z90.49 Acquired absence of other specified parts of digestive tract; Z88.0 Allergy status to penicillin; Z88.5 Allergy status to narcotic agent; Z88.1 Allergy status to other antibiotic agents; Z91.040 Latex allergy status; Z91.030 Bee allergy status; Z88.8 Allergy status to other drugs, medicaments and biological substances
CPT/HCPCS: 36415; 74176; 80053; 81001; 81025; 82550; 83690; 85025; 87088; 96361; 96365; 96366; 96367; 96368; 96375; 99284; J0696; J1953; J2060; J2405; J3475; J3490; J7030; A4353

== ENCOUNTER 2022-05-14 10:19 | Emergency (ER) | payer MEDICAID ==
[~2022-05-14] VITALS: Ht 152.4 cm; Wt 68.2 kg
[~2022-05-14 10:19] MED LIST changes: -INSU100I31; +INSU100I31 SQ; +ONDA4TAB12 PO
[2022-05-14 11:13] LABS: BASOPHILS # (AUTO) 0.1 X10'3 (0-0.2); BASOPHILS % (AUTO) 0.7 % (0-1); EOSINOPHILS % (AUTO) 0 % (0-6); HEMATOCRIT 30.5 % (35.0-45.0); HEMOGLOBIN 10.3 g/dl (12.0-16.0); LYMPHOCYTES # (AUTO) 1.2 X10'3 (1.1-4.8); LYMPHOCYTES % (AUTO) 7.9 % (21-51); MEAN CORPUSCULAR HEMOGLOBIN 27.2 PG (27.0-31.0); MEAN CORPUSCULAR HGB CONC 33.9 g/dL (33.0-36.5); MEAN CORPUSCULAR VOLUME 80.4 FL (78-98); MEAN PLATELET VOLUME 7.9 FL (7.4-10.4); MONOCYTES % (AUTO) 6.5 % (2-12); NEUTROPHILS % (AUTO) 84.9 % (42-75); PLATELET COUNT 379 X10'3 (140-440); RED BLOOD COUNT 3.79 X10'6 (4.20-5.60); RED CELL DISTRIBUTION WIDTH 15.8 % (11.5-14.5); WHITE BLOOD COUNT 15.3 X10'3 (4.5-11.0)
[2022-05-14 11:24] LABS: ALANINE AMINOTRANSFERASE 24 U/L (12-78); ALBUMIN 3.6 G/DL (3.4-5.0); ALBUMIN/GLOBULIN RATIO 0.9 (1.1-1.5); ALKALINE PHOSPHATASE 85 IU/L (46-116); ANION GAP 11 (8-16); ASPARTATE AMINO TRANSFERASE 21 U/L (10-37); BILIRUBIN,TOTAL 0.3 MG/DL (0.1-1.0); BLOOD UREA NITROGEN 37 MG/DL (7-18); CALCIUM 8.5 MG/DL (8.5-10.1); CHLORIDE 96 MMOL/L (99-107); CREATININE 1.37 MG/DL (0.40-0.90); GLUCOSE 417 MG/DL (70-104); MAGNESIUM 1.7 MG/DL (1.5-2.4); POTASSIUM 3.4 MMOL/L (3.5-5.1); SODIUM 133 MMOL/L (135-145); TOTAL CARBON DIOXIDE 25.6 MMOL/L (24-32); TOTAL PROTEIN 7.4 G/DL (6.4-8.2); eGFR 39 ML/MIN
[2022-05-14] MEDS ORDERED: ringers solution, lacted 1,000 ML IV ONE ×2 (12:25→16:45)
[2022-05-14] MEDS ORDERED: ondansetron/PF 4mg/2ml inj IV ONE (12:45)
[2022-05-14] MEDS ORDERED: fentaNYL/PF 50MCG/1 ML 2ML syringe IV ONE ×2 (12:45→14:25)
--- NOTE | 2022-05-14 13:47 | NUR ---
CALL PT DAUGHTER NGA AT [phone] WHEN PT READY FOR CAR SHIFTER.
[2022-05-14 13:59] LABS: URINE HCG NEGATIVE (NEG)
[2022-05-14 14:07] LABS: CLARITY,URINE CLEAR (Clear); COLOR,URINE YELLOW (Yellow); PH,URINE 5.5 (4.8-8.0); PROTEIN,URINE 100 mg/dl (Neg); UA COLLECTION TYPE STRAIGHT CATH
[2022-05-14 14:08] LABS: GLUCOSE, URINE 500 mg/dl (Neg); KETONES,URINE NEGATIVE (Neg); LEUKOCYTE ESTERASE ,URINE NEGATIVE (Neg); NITRITES, URINE NEGATIVE (Neg); OCCULT BLOOD,URINE SMALL (Neg); UROBILINOGEN,URINE 0.2 E.U/dL (0.2-1.0)
[2022-05-14 14:10] LABS: BACTERIA,URINE NONE SEEN /HPF (Neg); MUCUS STRANDS NONE SEEN /LPF (Neg); RBC,URINE NONE SEEN /HPF (0-2); SQUAMOUS EPITHELIAL CELL,UR FEW /LPF (FEW); WBC,URINE 0-4 /HPF (0-4)
[2022-05-14] MEDS ORDERED: normal saline 1000ML IV soln IVB ONE ×2 (14:25→19:00)
[2022-05-14] MEDS ORDERED: metoclopramide 5 mg/ml inj IV ONE (16:45)
[2022-05-14] MEDS ORDERED: LORazepam 2 mg/ml vial IV ONE (16:45)
--- NOTE | 2022-05-14 18:41 | NUR ---
Pt's daughter, Margie Connors called to ask if pt was ready to go home. [phone].
[2022-05-14] MEDS ORDERED: METO5TAB85 PO ×3 (20:29→21:20)
[2022-05-14] MEDS ORDERED: LORA-269 PO ×2 (20:29)
--- NOTE | 2022-05-14 20:30 | NUR ---
Verified plan for discharge with Dr. Cook. He would like to proceed with discharging the patient home with her family.
[2022-05-14] MEDS ORDERED: acetaminophen 325mg tablet PO PRN (20:40)
[2022-05-14] MEDS ORDERED: potassium Cl 20 mEq SR tablet PO PRN ×2 (20:40)
[2022-05-14] MEDS ORDERED: potassium Cl 40MEQ/1/2NS 520ml 520 ML IV PRN (20:40)
[2022-05-14] MEDS ORDERED: bisacodyl 10mg suppository rectal RC PRN (20:40)
[2022-05-14] MEDS ORDERED: diphenhydrAMINE 25mg capsule PO PRN (20:40)
[2022-05-14] MEDS ORDERED: ondansetron/PF 4mg/2ml inj IV PRN (20:40)
[2022-05-14] MEDS ORDERED: magnesium hydroxide 30ml (MOM) UD suspension PO PRN (20:40)
[2022-05-14] MEDS ORDERED: mag hydrox/Alum hydrox/simeth 30ml oral suspension PO PRN (20:40)
[2022-05-14] MEDS ORDERED: ondansetron 4mg rapidly disintigrating tab PO PRN (20:40)
[2022-05-14] MEDS ORDERED: acetaminophen 650mg rectal suppository RC PRN (20:40)
[2022-05-14] MEDS ORDERED: diphenhydrAMINE 50 mg/ml inj IV PRN (20:40)
[2022-05-14] MEDS ORDERED: normal saline 1000ml 1,000 ML IV SCH (20:40)
[2022-05-14] MEDS ORDERED: metoclopramide 5 mg/ml inj IV PRN (20:40)
[2022-05-14 20:44] LABS: ALBUMIN 2.8 G/DL (3.4-5.0); ANION GAP 8 (8-16); BLOOD UREA NITROGEN 32 MG/DL (7-18); BUN/CREATININE RATIO 29.9 (6.6-38.0); CALCIUM 7.4 MG/DL (8.5-10.1); CHLORIDE 105 MMOL/L (99-107); CREATININE 1.07 MG/DL (0.40-0.90); GLUCOSE 148 MG/DL (70-104); POTASSIUM 3.2 MMOL/L (3.5-5.1); SODIUM 139 MMOL/L (135-145); TOTAL CARBON DIOXIDE 25.6 MMOL/L (24-32); eGFR 52 ML/MIN
[2022-05-14] MEDS ORDERED: glucagon, human recombinant 1mg kit SUBCUT PRN (20:45)
[2022-05-14] MEDS ORDERED: insulin Lispro (HumaLOG) vial - multi-dose SQ SCH (20:45)
[2022-05-14] MEDS ORDERED: MESSAGE TO PHARMACY PO ONE (20:45)
[2022-05-14] MEDS ORDERED: DEXTROSE 15 GM of carb/4 tabs (each vial/BOTTLE has 4 tablets) PO PRN ×2 (20:45)
[2022-05-14] MEDS ORDERED: dextrose 50%-water 50ml dispensing syringe IV PRN ×2 (20:45)
[2022-05-14] MEDS ORDERED: LORA-268 PO (20:57)
[2022-05-14] MEDS ORDERED: temazepam 15mg capsule PO PRN (21:00)
[2022-05-14] MEDS ORDERED: insulin glargine (Lantus) pen - multi-dose SQ SCH (21:00)
[2022-05-14 21:06] VITALS: BP 140/67
[2022-05-14 21:07] LABS: CREATINE KINASE 131 U/L (26-192); PHOSPHORUS 2.9 MG/DL (2.3-4.5)
[2022-05-14 21:16] LABS: URINE AMPHETAMINE SCREEN NEGATIVE (Neg); URINE BARBITUATE SCREEN NEGATIVE (Neg); URINE BENZODIAZEPINES SCREEN NEGATIVE (Neg); URINE CANNABINOID SCREEN POSITIVE (Neg); URINE COCAINE SCREEN NEGATIVE (Neg); URINE METHADONE SCREEN NEGATIVE (Neg); URINE OPIATE SCREEN NEGATIVE (Neg); URINE PHENCYCLIDINE SCREEN NEGATIVE (Neg)
[2022-05-14] MEDS ORDERED: PANT40TA54 PO (21:22)
[2022-05-14] MEDS ORDERED: GABA-534 PO (21:42)
[2022-05-14] MEDS ORDERED: SERT50TA PO (21:51)
[2022-05-14] MEDS ORDERED: SUMA20SP8 NAS (21:51)
[2022-05-14] MEDS ORDERED: LIPA1CAP18 PO (21:59)
[2022-05-14] MEDS ORDERED: HYDR-3686 PO (21:59)
[2022-05-14] MEDS ORDERED: LORA10TA7 PO (21:59)
[2022-05-14] MEDS ORDERED: NOVLG SQ (21:59)
[2022-05-14] MEDS ORDERED: APIX2.5T PO (21:59)
[2022-05-14] MEDS ORDERED: ALBU90AE2 INH (21:59)
[2022-05-14] MEDS ORDERED: LURA60TA PO (21:59)
[2022-05-15] MEDS ORDERED: docusate sod 100mg capsule PO SCH (08:00)
[2022-05-15] MEDS ORDERED: K and/or MAG REPLACEMENT MC SCH (08:00)
[2022-05-15] MEDS ORDERED: LORazepam 1 MG tablet PO SCH (08:00)
[2022-05-15] MEDS ORDERED: heparin, porcine 5000 units/ml vial SQ SCH (08:00)
== END 2022-05-14 21:08 | disposition home or self-care (01) ==
LOC: ER 10:19
DX: E11.65 Type 2 diabetes mellitus with hyperglycemia (principal); E86.0 Dehydration; N17.9 Acute kidney failure, unspecified; R10.32 Left lower quadrant pain; G43.909 Migraine, unspecified, not intractable, without status migrainosus; Z88.0 Allergy status to penicillin; Z88.6 Allergy status to analgesic agent; Z88.8 Allergy status to other drugs, medicaments and biological substances; Z88.5 Allergy status to narcotic agent; Z91.040 Latex allergy status; Z98.890 Other specified postprocedural states; Z90.710 Acquired absence of both cervix and uterus; Z56.0 Unemployment, unspecified
CPT/HCPCS: 36415; 70450; 71045; 74176; 80048; 80053; 80305; 81001; 81025; 82550; 82948; 83605; 83735; 83880; 84100; 84145; 84443; 84484; 85025; 87040; 93005; 96361; 96374; 96375; 96376; 99285; J1815; J2060; J2405; J2765; J3010; J7030; J7120

== ENCOUNTER 2022-07-01 12:37 | Emergency (ER) | payer MEDICARE, MEDICAID ==
[~2022-07-01] VITALS: Ht 152.4 cm; Wt 53.2 kg
[~2022-07-01 12:37] MED LIST changes: +ALBU90AE2 INH; +APIX2.5T PO; +GABA-534 PO; -GABA600T13 PO; +HYDR-3686 PO; -INSU100I39 SUBCUT; -KEP500T PO; +LIPA1CAP18 PO; +LORA-268 PO; +LORA10TA7 PO; +LURA60TA PO; +METO5TAB85 PO; +NOVLG SQ; -ONDA4TAB12 PO; -ONDA4TAB6 PO; -ONDA8TAB6 PO; -PANT-47 PO; +PANT40TA54 PO; -RIZA-5 PO; +SERT50TA PO; +SUMA20SP8 NAS
[2022-07-01] MEDS ORDERED: normal saline 1000ML IV soln IV ONE (12:50)
[2022-07-01] MEDS ORDERED: morphine 4 MG/ML inj SYRINge IV PRN (12:50)
[2022-07-01] MEDS ORDERED: ondansetron/PF 4mg/2ml inj IV ONE (12:50)
[2022-07-01] MEDS ORDERED: LORazepam 2 mg/ml vial IV ONE (12:50)
[2022-07-01 13:18] LABS: ALANINE AMINOTRANSFERASE 15 U/L (12-78); ALBUMIN 3.8 G/DL (3.4-5.0); ALBUMIN/GLOBULIN RATIO 0.8 (1.1-1.5); ALKALINE PHOSPHATASE 102 IU/L (46-116); ANION GAP 17 (8-16); ASPARTATE AMINO TRANSFERASE 16 U/L (10-37); BASOPHILS # (AUTO) 0.1 X10'3 (0-0.2); BASOPHILS % (AUTO) 1.1 % (0-1); BILIRUBIN,TOTAL 0.3 MG/DL (0.1-1.0); BLOOD UREA NITROGEN 25 MG/DL (7-18); BUN/CREATININE RATIO 18.1 (6.6-38.0); CALCIUM 9.7 MG/DL (8.5-10.1); CHLORIDE 98 MMOL/L (99-107); CREATININE 1.38 MG/DL (0.40-0.90); EOSINOPHILS % (AUTO) 0 % (0-6); ETHANOL < 0.010 GM/DL (0.0-0.010); HEMATOCRIT 36.5 % (35.0-45.0); HEMOGLOBIN 11.9 g/dl (12.0-16.0); LYMPHOCYTES # (AUTO) 0.8 X10'3 (1.1-4.8); LYMPHOCYTES % (AUTO) 6.5 % (21-51); MAGNESIUM 1.8 MG/DL (1.5-2.4); MEAN CORPUSCULAR HEMOGLOBIN 26.4 PG (27.0-31.0); MEAN CORPUSCULAR HGB CONC 32.5 g/dL (33.0-36.5); MEAN CORPUSCULAR VOLUME 81.3 FL (78-98); MEAN PLATELET VOLUME 7.9 FL (7.4-10.4); MONOCYTES # (AUTO) 0.3 X10'3 (0-0.9); MONOCYTES % (AUTO) 2.5 % (2-12); NEUTROPHILS # (AUTO) 11.3 X10'3 (1.8-7.7); NEUTROPHILS % (AUTO) 89.9 % (42-75); PLATELET COUNT 407 X10'3 (140-440); POTASSIUM 4.3 MMOL/L (3.5-5.1); RED BLOOD COUNT 4.49 X10'6 (4.20-5.60); SODIUM 135 MMOL/L (135-145); TOTAL CARBON DIOXIDE 20.4 MMOL/L (24-32); TOTAL PROTEIN 8.3 G/DL (6.4-8.2); WHITE BLOOD COUNT 12.6 X10'3 (4.5-11.0); eGFR 38 ML/MIN
[2022-07-01 13:20] LABS: GLUCOSE 454 MG/DL (70-104)
--- NOTE | 2022-07-01 14:13 | NUR ---
Pt drank 3 oz water without N/V
[2022-07-01 14:37] LABS: CLARITY,URINE CLEAR (Clear); COLOR,URINE STRAW (Yellow); GLUCOSE, URINE >=1000 mg/dl (Neg); KETONES,URINE TRACE mg/dl (Neg); LEUKOCYTE ESTERASE ,URINE NEGATIVE (Neg); NITRITES, URINE NEGATIVE (Neg); OCCULT BLOOD,URINE SMALL (Neg); PH,URINE 5.5 (4.8-8.0); PROTEIN,URINE 100 mg/dl (Neg); UROBILINOGEN,URINE 0.2 E.U/dL (0.2-1.0)
[2022-07-01 14:38] LABS: UA COLLECTION TYPE STRAIGHT CATH
[2022-07-01 14:43] LABS: URINE AMPHETAMINE SCREEN NEGATIVE (Neg); URINE BARBITUATE SCREEN NEGATIVE (Neg); URINE BENZODIAZEPINES SCREEN NEGATIVE (Neg); URINE CANNABINOID SCREEN POSITIVE (Neg); URINE COCAINE SCREEN NEGATIVE (Neg); URINE METHADONE SCREEN NEGATIVE (Neg); URINE OPIATE SCREEN POSITIVE (Neg); URINE PHENCYCLIDINE SCREEN NEGATIVE (Neg)
[2022-07-01 14:44] LABS: BACTERIA,URINE NONE SEEN /HPF (Neg); MUCUS STRANDS NONE SEEN /LPF (Neg); RBC,URINE 0-2 /HPF (0-2); RENAL CELLS, URINE FEW /HPF; SQUAMOUS EPITHELIAL CELL,UR NONE SEEN /LPF (FEW); WBC,URINE 0-4 /HPF (0-4)
[2022-07-01 15:09] VITALS: BP 128/33
== END 2022-07-01 15:12 | disposition home or self-care (01) ==
LOC: ER 12:38
DX: R11.2 Nausea with vomiting, unspecified (principal); R19.7 Diarrhea, unspecified; R10.11 Right upper quadrant pain; E86.0 Dehydration; R56.9 Unspecified convulsions; G43.909 Migraine, unspecified, not intractable, without status migrainosus; E11.649 Type 2 diabetes mellitus with hypoglycemia without coma; Z88.8 Allergy status to other drugs, medicaments and biological substances; Z88.5 Allergy status to narcotic agent; Z88.6 Allergy status to analgesic agent; Z79.899 Other long term (current) drug therapy; Z79.1 Long term (current) use of non-steroidal anti-inflammatories (NSAID); Z79.2 Long term (current) use of antibiotics; Z79.84 Long term (current) use of oral hypoglycemic drugs
CPT/HCPCS: 36415; 71045; 80053; 80305; 80320; 81001; 83735; 85025; 96361; 96374; 96375; 99285; J2060; J2270; J2405; J7030

== ENCOUNTER 2022-08-10 09:46 | Emergency (ER) | payer MEDICARE, MEDICAID ==
[~2022-08-10] VITALS: Ht 152.4 cm; Wt 57.3 kg
--- NOTE | 2022-08-10 10:19 | NUR ---
GOT ORDER FOR HEAD CT BY ROSAMARIA GUDINO
[2022-08-10] MEDS ORDERED: ondansetron 4mg rapidly disintigrating tab PO ONE (11:35)
--- NOTE | 2022-08-10 11:57 | NUR ---
DAUGHTER LÓPEZ CALLED FOR [employer]ERCIAL [employer]OR INSTALLER OF PATIENT. .
[2022-08-10] MEDS ORDERED: dexamethasone sod phosphate 10mg/ml inj IV STA (12:28)
[2022-08-10] MEDS ORDERED: metoclopramide 5 mg/ml inj IV ONE (12:30)
[2022-08-10] MEDS ORDERED: diphenhydrAMINE 50 mg/ml inj IV ONE (12:30)
[2022-08-10] MEDS ORDERED: meclizine 12.5mg tablet PO ONE (12:30)
[2022-08-10] MEDS ORDERED: normal saline 1000ml 1,000 ML IV ONE (13:35)
[2022-08-10] MEDS ORDERED: magnesium 2GM in 50ml NS 50 ML IV ONE (13:45)
--- NOTE | 2022-08-10 14:11 | NUR ---
CHARGE NURSE NOTIFIED OF IV MEDICATIONS.
[2022-08-10 14:13] LABS: BASOPHILS % (AUTO) 0.5 % (0-1); EOSINOPHILS # (AUTO) 0.2 X10'3 (0-0.9); EOSINOPHILS % (AUTO) 2.1 % (0-6); HEMATOCRIT 29.2 % (35.0-45.0); HEMOGLOBIN 9.7 g/dl (12.0-16.0); LYMPHOCYTES # (AUTO) 2.2 X10'3 (1.1-4.8); MEAN CORPUSCULAR HEMOGLOBIN 26.6 PG (27.0-31.0); MEAN CORPUSCULAR HGB CONC 33.3 g/dL (33.0-36.5); MEAN CORPUSCULAR VOLUME 79.8 FL (78-98); MEAN PLATELET VOLUME 7.3 FL (7.4-10.4); MONOCYTES # (AUTO) 0.6 X10'3 (0-0.9); MONOCYTES % (AUTO) 8.5 % (2-12); NEUTROPHILS # (AUTO) 4.2 X10'3 (1.8-7.7); NEUTROPHILS % (AUTO) 57.9 % (42-75); PLATELET COUNT 300 X10'3 (140-440); RED BLOOD COUNT 3.66 X10'6 (4.20-5.60); RED CELL DISTRIBUTION WIDTH 15.3 % (11.5-14.5); WHITE BLOOD COUNT 7.3 X10'3 (4.5-11.0)
[2022-08-10 14:18] LABS: ALANINE AMINOTRANSFERASE 12 U/L (12-78); ALBUMIN 2.7 G/DL (3.4-5.0); ALBUMIN/GLOBULIN RATIO 0.8 (1.1-1.5); ALKALINE PHOSPHATASE 96 IU/L (46-116); ANION GAP 4 (8-16); ASPARTATE AMINO TRANSFERASE 10 U/L (10-37); BILIRUBIN,TOTAL 0.2 MG/DL (0.1-1.0); BLOOD UREA NITROGEN 18 MG/DL (7-18); CALCIUM 8.3 MG/DL (8.5-10.1); CHLORIDE 104 MMOL/L (99-107); GLUCOSE 335 MG/DL (70-104); MAGNESIUM 1.9 MG/DL (1.5-2.4); POTASSIUM 4.4 MMOL/L (3.5-5.1); SODIUM 137 MMOL/L (135-145); TOTAL PROTEIN 6.3 G/DL (6.4-8.2); eGFR 45 ML/MIN
[2022-08-10 15:03] VITALS: BP 136/77
== END 2022-08-10 15:22 | disposition home or self-care (01) ==
LOC: ER 09:47
DX: S06.0XAA Concussion with loss of consciousness status unknown, initial encounter (principal); R51.9 Headache, unspecified; Z88.0 Allergy status to penicillin; Z88.8 Allergy status to other drugs, medicaments and biological substances; Z88.6 Allergy status to analgesic agent; Z91.041 Radiographic dye allergy status; W19.XXXA Unspecified fall, initial encounter; Y93.89 Activity, other specified; Y92.89 Other specified places as the place of occurrence of the external cause; Y99.8 Other external cause status
CPT/HCPCS: 36415; 70450; 72125; 80053; 83735; 85025; 96361; 96365; 96375; 99285; J1100; J1200; J2765; J3475; J7030; J8597; A6449

== ENCOUNTER 2022-08-21 09:09 | Emergency (ER) | payer MEDICARE, MEDICAID ==
[~2022-08-21] VITALS: Ht 152.4 cm; Wt 80.0 kg
[2022-08-21] MEDS ORDERED: ondansetron/PF 4mg/2ml inj IV ONE (09:25)
[2022-08-21] MEDS ORDERED: normal saline 1000ML IV soln IVB ONE (09:25)
[2022-08-21] MEDS ORDERED: HYDROmorphone inj. 0.5 MG/0.5 ML DISP.SYRIN IV ONE (09:35)
[2022-08-21 09:57] LABS: BASOPHILS # (AUTO) 0.1 X10'3 (0-0.2); BASOPHILS % (AUTO) 0.7 % (0-1); EOSINOPHILS % (AUTO) 0.2 % (0-6); HEMATOCRIT 34.3 % (35.0-45.0); HEMOGLOBIN 10.9 g/dl (12.0-16.0); LYMPHOCYTES # (AUTO) 1.4 X10'3 (1.1-4.8); LYMPHOCYTES % (AUTO) 8.8 % (21-51); MEAN CORPUSCULAR HEMOGLOBIN 25.4 PG (27.0-31.0); MEAN CORPUSCULAR HGB CONC 31.8 g/dL (33.0-36.5); MEAN CORPUSCULAR VOLUME 79.7 FL (78-98); MEAN PLATELET VOLUME 7.7 FL (7.4-10.4); MONOCYTES # (AUTO) 0.5 X10'3 (0-0.9); MONOCYTES % (AUTO) 2.8 % (2-12); NEUTROPHILS # (AUTO) 14.2 X10'3 (1.8-7.7); NEUTROPHILS % (AUTO) 87.5 % (42-75); PLATELET COUNT 363 X10'3 (140-440); RED CELL DISTRIBUTION WIDTH 15.9 % (11.5-14.5); WHITE BLOOD COUNT 16.2 X10'3 (4.5-11.0)
--- NOTE | 2022-08-21 10:06 | NUR ---
PLZ CONTACT NGA (DAUGHTER) FOR RIDE. NUMBER IN PT DATA.
[2022-08-21 10:28] LABS: ALANINE AMINOTRANSFERASE 15 U/L (12-78); ALBUMIN 3.5 G/DL (3.4-5.0); ALBUMIN/GLOBULIN RATIO 0.8 (1.1-1.5); ALKALINE PHOSPHATASE 115 IU/L (46-116); ANION GAP 10 (8-16); ASPARTATE AMINO TRANSFERASE 16 U/L (10-37); BILIRUBIN,TOTAL 0.3 MG/DL (0.1-1.0); BLOOD UREA NITROGEN 23 MG/DL (7-18); BUN/CREATININE RATIO 13.9 (6.6-38.0); CALCIUM 9.1 MG/DL (8.5-10.1); CHLORIDE 99 MMOL/L (99-107); CREATININE 1.65 MG/DL (0.40-0.90); LIPASE 173 U/L (73-393); MAGNESIUM 1.8 MG/DL (1.5-2.4); POTASSIUM 4.3 MMOL/L (3.5-5.1); SODIUM 134 MMOL/L (135-145); TOTAL PROTEIN 7.9 G/DL (6.4-8.2); eGFR 31 ML/MIN
[2022-08-21 10:31] LABS: ETHANOL < 0.010 GM/DL (0.0-0.010); GLUCOSE 464 MG/DL (70-104)
[2022-08-21 14:19] LABS: URINE AMPHETAMINE SCREEN NEGATIVE (Neg); URINE BARBITUATE SCREEN NEGATIVE (Neg); URINE BENZODIAZEPINES SCREEN NEGATIVE (Neg); URINE CANNABINOID SCREEN POSITIVE (Neg); URINE COCAINE SCREEN NEGATIVE (Neg); URINE METHADONE SCREEN NEGATIVE (Neg); URINE OPIATE SCREEN NEGATIVE (Neg); URINE PHENCYCLIDINE SCREEN NEGATIVE (Neg)
[2022-08-21 14:44] LABS: CLARITY,URINE CLEAR (Clear); COLOR,URINE YELLOW (Yellow); GLUCOSE, URINE >=1000 mg/dl (Neg); KETONES,URINE 15 mg/dl (Neg); LEUKOCYTE ESTERASE ,URINE NEGATIVE (Neg); NITRITES, URINE NEGATIVE (Neg); OCCULT BLOOD,URINE SMALL (Neg); PH,URINE 6.5 (4.8-8.0); PROTEIN,URINE 100 mg/dl (Neg); UROBILINOGEN,URINE 0.2 E.U/dL (0.2-1.0)
[2022-08-21 14:47] LABS: UA COLLECTION TYPE STRAIGHT CATH
[2022-08-21 14:53] LABS: BACTERIA,URINE NONE SEEN /HPF (Neg); RBC,URINE 0-2 /HPF (0-2); SQUAMOUS EPITHELIAL CELL,UR FEW /LPF (FEW); TRANSITIONAL EPI CELLS,URINE FEW /HPF; WBC,URINE 0-4 /HPF (0-4)
[2022-08-21] MEDS ORDERED: LIDOcaine Viscous 15ml cup MM PRN (15:45)
[2022-08-21] MEDS ORDERED: normal saline 1000ml 1,000 ML IV ONE (15:45)
[2022-08-21] MEDS ORDERED: mag hydrox/Alum hydrox/simeth 30ml oral suspension PO ONE (15:45)
[2022-08-21 16:00] VITALS: BP 166/100
--- NOTE | 2022-08-21 16:17 | NUR ---
NGA RAI [phone].
[2022-08-21] MEDS ORDERED: ondansetron 4mg rapidly disintigrating tab PO ONE (17:00)
[2022-08-21] MEDS ORDERED: oxyCODONE/APAP 5-325mg tablet PO ONE (17:00)
[2022-08-21] MEDS ORDERED: HYDR-3965 PO (17:43)
[2022-08-21] MEDS ORDERED: ONDA4TAB12 PO (17:47)
--- NOTE | 2022-08-21 17:53 | NUR ---
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 ETA 20 min.
== END 2022-08-21 18:31 | disposition home or self-care (01) ==
LOC: ER 09:10
DX: K29.00 Acute gastritis without bleeding (principal); G43.909 Migraine, unspecified, not intractable, without status migrainosus; E11.9 Type 2 diabetes mellitus without complications; F12.90 Cannabis use, unspecified, uncomplicated; Z88.0 Allergy status to penicillin; Z88.8 Allergy status to other drugs, medicaments and biological substances; Z91.041 Radiographic dye allergy status; Z88.6 Allergy status to analgesic agent; Z91.040 Latex allergy status; Z88.5 Allergy status to narcotic agent; Z98.890 Other specified postprocedural states; Z90.710 Acquired absence of both cervix and uterus; Z56.0 Unemployment, unspecified
CPT/HCPCS: 36415; 74176; 80053; 80305; 80320; 81001; 82140; 83690; 83735; 84484; 85025; 93005; 96361; 96374; 96375; 99285; J1170; J2405; J7030; A4353